=== PATIENT | female | born 1955 | race Caucasian/White ===

== ENCOUNTER 2018-04-08 04:26 | Inpatient (IN) | payer OTHER ==
--- NOTE | 2018-04-08 04:43 | PDOC ---
History of Present Illness - General Stated Complaint: L EAR PAIN Time Seen by Provider: 04/08/18 04:28 - History of Present Illness Initial Comments: 04/08/18 04:41 62 yo F with h/o COPD, KAITLIN, HTN , DM, who p/w cough, SOB, and left ear pain. Reports 1-2 months of worsening non productive cough, SOB. Denies duoneb use, but reports "ricolla cough suppressant use daily." Endorses 1 day of sharp left ear pain, absent discharge, with no identifiable triggers or alleviators. No home O2 requirements. Denies recent sick contacts or travels. Denies trauma, surgery, immobilization, malignancy. Patient denies N/V, F,C, CP, Palpitations, SOB, urinary complaints, abdominal pain, hematuria, BPR, diarrhea, constipation, lightheadedness, weakness, sensory changes. PMHx: as noted above. Denies h/o ICU admission or intubation. Does not f/w Pulm. ROS: as noted SHx: 1/2 ppd x 10+ years tobacco use. Denies IVDA Allergies: NKDA Past History - Past Medical History Allergies/Adverse Reactions: Allergies Allergy/AdvReac Type Severity Reaction Status Date / Time No Known Allergies Allergy Verified 04/08/18 04:45 Home Medications: Ambulatory Orders Duloxetine HCl [Cymbalta] 20 mg PO DAILY 04/08/18 Esomeprazole Magnesium [Nexium 24Hr] 40 mg PO DAILY 04/08/18 Ezetimibe [Zetia] 5 mg PO DAILY 04/08/18 Levothyroxine [Synthroid -] 75 mcg PO DAILY 04/08/18 Pilocarpine HCl 5 mg PO BID 04/08/18 Prednisone 5 mg PO DAILY 04/08/18 Quetiapine Fumarate "Xr" [Seroquel Xr -] 300 mg PO DAILY 04/08/18 Review of Systems - Review of Systems Comments:: 04/08/18 04:41 GENERAL/CONSTITUTIONAL: No fever or chills. No weakness. HEAD, EYES, EARS, NOSE AND THROAT: + Left ear pain, with absent drainage. No change in vision. No discharge. No sore throat. CARDIOVASCULAR: No chest pain RESPIRATORY: + SOB, cough. hemoptysis. GASTROINTESTINAL: No nausea, vomiting, diarrhea or constipation. GENITOURINARY: No dysuria, frequency, or change in urination. MUSCULOSKELETAL: No joint or muscle swelling or pain. No neck or back pain. SKIN: No rash NEUROLOGIC: No headache, vertigo, loss of consciousness, or change in strength/ sensation. ENDOCRINE: No increased thirst. No abnormal weight change HEMATOLOGIC/LYMPHATIC: No anemia, easy bleeding, or history of blood clots. ALLERGIC/IMMUNOLOGIC: No hives or skin allergy. *Physical Exam - Physical Exam Comments: 04/08/18 04:41 GENERAL: Awake, alert, and fully oriented, in no acute distress HEAD: No signs of trauma, normocephalic, atraumatic EYES: PERRLA, EOMI, sclera anicteric, conjunctiva clear ENT: Left TM slightly erythematous, with absent retraction, bulging, drainage/ discharge. Auricles normal inspection, hearing grossly normal, nares patent, oropharynx clear without exudates. Moist mucosa NECK: Normal ROM, supple, no lymphadenopathy, JVD, or masses LUNGS: + diffuse exp rhonci. No distress, speaks full sentences,absent rales. HEART: Regular rate and rhythm, normal S1 and S2, no murmurs, rubs or gallops, peripheral pulses normal and equal bilaterally. ABDOMEN: Soft, nontender, normoactive bowel sounds. No guarding, no rebound. No masses EXTREMITIES : Normal inspection, Normal range of motion, no edema. No clubbing or cyanosis. SKIN: Warm, Dry, normal turgor, no rashes or lesions noted ED Treatment Course - LABORATORY CBC & Chemistry Diagram: 04/08/18 05:32 04/08/18 05:32 Medical Decision Making - Medical Decision Making 04/08/18 05:05 62 yo F with h/o COPD, KAITLIN, HTN , DM, who p/w cough, SOB, and left ear otalgia. HR 119, vitals otherwise wnl. Patient diaphoretic, with diffuse exp rhonci. R/o PNA. Low risk PE Weils criteria. Will consider viral URI / COPD exacerbation. DDx: Influenza, pleural effusion. Ed Course: CBC, CMP, EKG, CXR, BCx, LA, VBG Duonebs, Prednisone, 04/08/18 05:30 EKG: Sinus tachycardia with RAD. Nml interval duration and axis. Nml R wave progression. Absent MARIA ELENA, STD. 04/08/18 05:42 Rectal temp 102 04/08/18 06:21 CBC: Unremarkable VBG: Unremarkable CXR: BL Lower lobe infiltrates Rocephin1 g , Azithromycin 500 mg 04/08/18 06:26 CMP: Unremarkable 04/08/18 06:30 LA: 1.6 FLU: Neg Patient with continued wheezing despite duonebs, and steroids. Plan to admit med/surg COPD, PNA, SEPSIS *DC/Admit/Observation/Transfer Diagnosis at time of Disposition: COPD (chronic obstructive pulmonary disease) Qualifiers: COPD type: COPD with acute exacerbation Qualified Code(s): J44.1 - Chronic obstructive pulmonary disease with (acute) exacerbation PNA (pneumonia) Qualifiers: Pneumonia type: due to unspecified organism Laterality: bilateral Lung location : unspecified part of lung Qualified Code(s): J18.9 - Pneumonia, unspecified organism - Discharge Dispostion Condition at time of disposition: Stable Decision to Admit order: Yes - Referrals - Patient Instructions Printed Discharge Instructions: DI for Ear Pain-Adult Additional Instructions: Please return to the emergency department with any new or worsening symptoms or concerns. Please follow up with your primary care physician within 72 hours. - Post Discharge Activity - Attestations Physician Attestion: 04/08/18 04:42 I attest to the information provided in this note.
[2018-04-08] MEDS ORDERED: ALBUTEROL SO4 2.5/IPRATROPIUM 0.5 INH SOL 3 ML VIAL.NEB. NEB ONE ×4 (04:56→05:45)
[2018-04-08] MEDS ORDERED: predniSONE 20 MG TABLET (UD) PO ONE (04:56)
[2018-04-08] MEDS ORDERED: guaiFENesin 200 MG/10 ML 10 ML UNIT-DOSE CUPS PO ONE (04:57)
[2018-04-08] MEDS ORDERED: ACETAMINOPHEN 325 MG TABLET (FP) PO ONE (05:18)
[2018-04-08] MEDS ORDERED: ACETAMINOPHEN 325 MG TABLET (FP) ONE (05:24)
[2018-04-08] MEDS ORDERED: guaiFENesin 200 MG/10 ML 10 ML UNIT-DOSE CUPS ONE (05:24)
[2018-04-08] MEDS ORDERED: predniSONE 20 MG TABLET (UD) ONE (05:24)
[2018-04-08 05:46] LABS: EOS % 1.1 % (0-4.5); HEMATOCRIT 39.1 % (32.4-45.2); HEMOGLOBIN 12.8 GM/dL (10.7-15.3); LYMPH % 25.8 % (8-40); MCHC 32.8 g/dl (32.0-36.0); MEAN CELL VOLUME 94.6 fl (80-96); MEAN PLT VOLUME 7.7 fl (7.5-11.1); MONO % 11.7 % (3.8-10.2); NEUT % 60.4 % (42.8-82.8); PLATELET COUNT 285 K/MM3 (134-434); RBC 4.13 M/mm3 (3.60-5.2); WHITE BLOOD COUNT 9.4 K/mm3 (4.0-10.0)
[2018-04-08] MEDS ORDERED: SODIUM CHLORIDE IV ONE (05:47)
[2018-04-08 06:06] LABS: VENOUS PC02 43.1 mmHg (38-52); VENOUS PH 7.42 (7.32-7.42); VENOUS PO2 33.5 mmHg (28-48)
[2018-04-08 06:23] LABS: ALBUMIN 3.6 g/dl (3.4-5.0); ALK PHOS 62 U/L (45-117); ANION GAP 9 MMOL/L (8-16); BILIRUBIN,TOTAL 0.6 mg/dL (0.2-1); BLOOD UREA NITROGEN 7 mg/dL (7-18); CALCIUM 8.9 mg/dL (8.5-10.1); CHLORIDE 99 mmol/L (98-107); CO2 26 mmol/L (21-32); CREATININE 0.8 mg/dL (0.55-1.3); GLUCOSE,RANDOM 156 mg/dL (74-106); POTASSIUM 4.4 mmol/L (3.5-5.1); SGOT/AST 23 U/L (15-37); SGPT/ALT 18 U/L (13-61); SODIUM 133 mmol/L (136-145); TOT PROT 7.8 g/dl (6.4-8.2)
[2018-04-08] MEDS ORDERED: AZITHROMYCIN IVPB 500 MG in DEXTROSE 5%-WATER - 250 ML IVPB ONE (06:26)
[2018-04-08] MEDS ORDERED: CEFTRIAXONE 1,000 MG in DEXTROSE 5%-WATER - 50 ML IVPB ONE ×2 (06:26→09:49)
[2018-04-08] MEDS ORDERED: AZITHROMYCIN IVPB 500 MG/250 ML BAG IVPB ONE (06:29)
[2018-04-08] MEDS ORDERED: CEFTRIAXONE 1 GM/50 ML BAG ONE (06:29)
--- NOTE | 2018-04-08 06:30 | PDOC ---
Attending Attestation - Resident Resident Name: Jh Coates - ED Attending Attestation I have performed the following: I have examined & evaluated the patient, The case was reviewed & discussed with the resident, I agree w/resident's findings & plan, Exceptions are as noted - HPI HPI: 04/08/18 06:28 62 years old past medical history significant for COPD obstructive sleep apnea hypertension diabetes presents with cough fever chills body aches worse over the last 3-4 days Symptoms are persistent concent moderate in severity with no alleviating factors she is also wheezing ROS: A complete review of 10 out of 10 review of systems is taken and is negative apart from what is previously mentioned below and in the HPI. - Physicial Exam PE: 04/08/18 06:29 Vitals: Triage Vital signs reviewed General Appearance: no acute distress, well nourished well developed, Head: Atraumatic, Eyes: Pupils equal reactive round, extraocular movement intact Neck: Supple;No Nucal rigidity Chest Wall: Nontender Cardiac: Regular rate and rhythym, no murmurs, no rubs, no gallops, Lungs: Clear to auscultation bilateral, good air movement bilaterally, Abdomen: Soft, non distended, normal bowel sounds, non tender to palpation Extremities: Full range of motion to all extremities, no cyanosis, clubbing, or edema Skin: Warm and dry, no rashes or lesions, no rash, no petechiae Psych: normal mood, normal affect - Medical Decision Making 04/08/18 06:29 Chest x-ray with evidence of lower lobe pneumonia Comorbidities still wheezing despite 3 DuoNeb's and steroids We'll admit to hospital for pneumonia complicated by COPD exacerbation for IV antibiotics IV steroids continue nebulizer treatment and further management. Heart Score/ECG Review - ECG Impressions Comment:: 04/08/18 06:30 EKG performed at 521 demonstrates sinus tachycardia [address] elevations or T-wave inversions right axis deviation Interpreted by me.
[2018-04-08] MEDS ORDERED: IBUPROFEN 600 MG TABLET (FP) PO ONE ×2 (07:17)
--- NOTE | 2018-04-08 07:19 | PDOC ---
*Physical Exam - Vital Signs Last Vital Signs Temp Pulse Resp BP Pulse Ox 101.7 F H 107 H 19 132/78 100 04/08/18 06:41 04/08/18 06:41 04/08/18 06:41 04/08/18 06:41 04/08/18 06:41 ED Treatment Course - LABORATORY CBC & Chemistry Diagram: 04/08/18 05:32 04/08/18 05:32 - ADDITIONAL ORDERS Additional order review: Laboratory Results 04/08/18 04/08/18 04/08/18 05:50 05:50 05:32 VBG pH 7.42 POC VBG pCO2 43.1 POC VBG pO2 33.5 Mixed VBG HCO3 27.5 H Sodium 133 L Potassium 4.4 Chloride 99 Carbon Dioxide 26 Anion Gap 9 BUN 7 Creatinine 0.8 Creat Clearance w eGFR > 60 Random Glucose 156 H Lactic Acid 1.6 Calcium 8.9 Total Bilirubin 0.6 AST 23 ALT 18 Alkaline Phosphatase 62 Total Protein 7.8 Albumin 3.6 04/08/18 05:32 RBC 4.13 MCV 94.6 MCHC 32.8 RDW 15.0 MPV 7.7 Neutrophils % 60.4 Lymphocytes % 25.8 Monocytes % 11.7 H Eosinophils % 1.1 Basophils % 1.0 - Medications Given in the ED: ED Medications Discontinued Medications Generic Name Dose Route Start Last Admin Trade Name Talib PRN Reason Stop Dose Admin Acetaminophen 650 mg 04/08/18 05:18 04/08/18 05:44 Tylenol - PO 04/08/18 05:19 650 mg ONCE ONE Administration Albuterol/Ipratropium 1 amp 04/08/18 04:56 04/08/18 05:44 Duoneb - NEB 04/08/18 04:57 1 amp ONCE ONE Administration Albuterol/Ipratropium 3 amp 04/08/18 05:30 04/08/18 05:44 Duoneb - NEB 04/08/18 05:31 3 amp ONCE ONE Administration Guaifenesin 10 ml 04/08/18 04:57 04/08/18 05:44 Robitussin - PO 04/08/18 04:58 10 ml ONCE ONE Administration Ceftriaxone Sodium 1,000 mg/ 50 mls @ 100 mls/hr 04/08/18 06:26 04/08/18 06: 40 Dextrose IVPB 04/08/18 06:55 100 mls/hr ONCE ONE Administration Prednisone 60 mg 04/08/18 04:56 04/08/18 05:44 Deltasone - PO 04/08/18 04:57 60 mg ONCE ONE Administration Medical Decision Making - Medical Decision Making 04/08/18 07:[address] Coates. Patient is 62F here today with copd and pneumonia. Patient reassessed, still febrile, given motrin. Patient has received duonebs, steroids, ceftriaxone, azithromycin. D/w Dr Molina. Admitted to m/s. *DC/Admit/Observation/Transfer Diagnosis at time of Disposition: COPD (chronic obstructive pulmonary disease) Qualifiers: COPD type: COPD with acute exacerbation Qualified Code(s): J44.1 - Chronic obstructive pulmonary disease with (acute) exacerbation PNA (pneumonia) Qualifiers: Pneumonia type: due to unspecified organism Laterality: bilateral Lung location : unspecified part of lung Qualified Code(s): J18.9 - Pneumonia, unspecified organism - Discharge Dispostion Condition at time of disposition: Stable Decision to Admit order: Yes - Referrals - Patient Instructions Printed Discharge Instructions: DI for Ear Pain-Adult Additional Instructions: Please return to the emergency department with any new or worsening symptoms or concerns. Please follow up with your primary care physician within 72 hours. - Post Discharge Activity
--- NOTE | 2018-04-08 08:02 | HP ---
CHIEF COMPLAINT: Cough and fever x 3 days PCP: JOSE A [facility]- Kely Coates/ Eben Pleitez-[phone] Likely PCP- Malcolm [phone] HISTORY OF PRESENT ILLNESS: Pt is a 62 yo F with PMHx of DM, HTN, KAITLIN (not currently on CPAP), thyroid disease, diverticulitis, disc prolapse, immune hepatitis, current smoker, presenting with worsening non productive cough and fever x3 days. Pt has chronic cough that worsened over the past 3 days with associated fevers. There is associated nasal congestion, L ear pain and sore throat. Pt uses hearing aids bilaterally, no ear discharge. No nausea/vomiting. Has been in contact with daughter and granddaughter with similar symptoms. Pt received flu vaccine about 4 months ago, does not know about pneumococal vaccine. Reports negative TB test about 4 years ago. Pt always uses 3 pillows. Was diagnosed with sleep apnea in past and had used CPAP for a while until it was "taken back" about 2 years ago. No pedal edema, no early satiety. Pt is a current smoker attempted quitting in past. Used nicotine gum and bupropion in past. Is open to using nicotine patch. Pt is visiting from [place] where she lives with a daughter and follows for health care. Has been shuttling between [facility] and [place] for the past one year between 2 daughters. Colonoscopy - reports nl 5years ago. ER course was notable for: (1)Fever 102.1>>101.7, tachycardia (2) CXR- possible bilateral infiltrates lower lobes, read as congestive changes , BNP-54 (3) EKG-sinus tachy, QTC wnl, No MARIA ELENA/STD. nl axis (4) zithromycin and ceftriaxone, fluids, duonebs Recent Travel: PAST MEDICAL HISTORY: PMHx of DM, HTN, KAITLIN (not currently on CPAP), thyroid disease, diverticulitis, disc prolapse, immune hepatitis PAST SURGICAL HISTORY: B/l cataract sx R ankle sx following fracture B/l claw hand sx R shoulder sx Social History: Smokin-8 cigs/day for almost 40 years Alcohol:Social Drugs: Denies Family History: Allergies No Known Allergies Allergy (Verified 04/08/18 04:45) HOME MEDICATIONS: Home Medications Medication Instructions Recorded Duloxetine HCl [Cymbalta] 20 mg PO DAILY 04/08/18 Esomeprazole Magnesium [Nexium 40 mg PO DAILY 04/08/18 24Hr] Ezetimibe [Zetia] 5 mg PO DAILY 04/08/18 Levothyroxine [Synthroid -] 75 mcg PO DAILY 04/08/18 Pilocarpine HCl 5 mg PO BID 04/08/18 Prednisone 5 mg PO DAILY 04/08/18 Quetiapine Fumarate "Xr" [Seroquel 300 mg PO DAILY 04/08/18 Xr -] REVIEW OF SYSTEMS CONSTITUTIONAL: Absent: fever+, chills+, diaphoresis+, generalized weakness, malaise, loss of appetite, weight change HEENT: Absent: rhinorrhea, nasal congestion+, throat pain+, throat swelling, difficulty swallowing, mouth swelling, ear pain, eye pain, visual changes CARDIOVASCULAR: Absent: chest pain, syncope, palpitations, irregular heart rate, lightheadedness , peripheral edema RESPIRATORY: Absent: cough+, shortness of breath+, dyspnea with exertion, orthopnea, wheezing , stridor, hemoptysis GASTROINTESTINAL: Absent: abdominal pain, abdominal distension, nausea, vomiting, diarrhea, constipation, melena, hematochezia GENITOURINARY: Absent: dysuria, frequency, urgency, hesitancy, hematuria+, L flank pain+, genital pain MUSCULOSKELETAL: Absent: myalgia, arthralgia, joint swelling, back pain, neck pain SKIN: Absent: rash, itching, pallor HEMATOLOGIC/IMMUNOLOGIC: Absent: easy bleeding, easy bruising, lymphadenopathy, frequent infections ENDOCRINE: Absent: unexplained weight gain, unexplained weight loss, heat intolerance, cold intolerance NEUROLOGIC: Absent: headache, focal weakness or paresthesias, dizziness, unsteady gait, seizure, mental status changes, bladder or bowel incontinence PSYCHIATRIC: Absent: anxiety, depression, suicidal or homicidal ideation, hallucinations. PHYSICAL EXAMINATION Vital Signs - 24 hr 04/08/18 04/08/18 04/08/18 04:29 05:42 06:41 Temperature 99.0 F 102.9 F H 101.7 F H Pulse Rate 119 H Pulse Rate [ 107 H Right Radial] Respiratory 18 19 Rate Blood Pressure 127/84 Blood Pressure 132/78 [Left Arm] O2 Sat by Pulse 100 100 Oximetry (%) GENERAL: Awake, alert, and fully oriented, in no acute distress, sweating. HEAD: Normal with no signs of trauma. EYES: intraocular lens b/l , extraocular movements intact, sclera anicteric, conjunctiva clear. EARS, NOSE, THROAT: tender L Ear, nares patent, oropharynx clear without exudates. Moist mucous membranes. NECK: Normal range of motion, supple without lymphadenopathy, JVD, or masses. LUNGS: Few wheezes, prolonged expiratory phase, and left basal crackles. HEART: tachycardic, rate and rhythm, normal S1 and S2 . ABDOMEN: Soft, mild epigastric tenderness, mildly distended, normoactive bowel sounds, no guarding, no rebound, no masses. MUSCULOSKELETAL: Normal range of motion at all joints. No bony deformities or tenderness. L mild CVA tenderness. LOWER EXTREMITIES: 2+ pulses, warm, well-perfused. No calf tenderness. No peripheral edema. NEUROLOGICAL: Cranial nerves II-XII intact. Normal speech. Normal muscle strength globally, no facial asymmetry, no tongue deviation PSYCHIATRIC: Cooperative. Good eye contact. Appropriate mood and affect. Laboratory Results - last 24 hr 04/08/18 04/08/18 04/08/18 05:32 05:32 05:50 WBC 9.4 RBC 4.13 Hgb 12.8 Hct 39.1 MCV 94.6 MCH 31.0 MCHC 32.8 RDW 15.0 Plt Count 285 MPV 7.7 Absolute Neuts (auto) 5.7 Neutrophils % 60.4 Lymphocytes % 25.8 Monocytes % 11.7 H Eosinophils % 1.1 Basophils % 1.0 Nucleated RBC % 0 VBG pH POC VBG pCO2 POC VBG pO2 Mixed VBG HCO3 Sodium 133 L Potassium 4.4 Chloride 99 Carbon Dioxide 26 Anion Gap 9 BUN 7 Creatinine 0.8 Creat Clearance w eGFR > 60 Random Glucose 156 H Lactic Acid Calcium 8.9 Total Bilirubin 0.6 AST 23 ALT 18 Alkaline Phosphatase 62 Total Protein 7.8 Albumin 3.6 Influenza A (Rapid) Negative Influenza B (Rapid) Negative 04/08/18 04/08/18 05:50 05:50 WBC RBC Hgb Hct MCV MCH MCHC RDW Plt Count MPV Absolute Neuts (auto) Neutrophils % Lymphocytes % Monocytes % Eosinophils % Basophils % Nucleated RBC % VBG pH 7.42 POC VBG pCO2 43.1 POC VBG pO2 33.5 Mixed VBG HCO3 27.5 H Sodium Potassium Chloride Carbon Dioxide Anion Gap BUN Creatinine Creat Clearance w eGFR Random Glucose Lactic Acid 1.6 Calcium Total Bilirubin AST ALT Alkaline Phosphatase Total Protein Albumin Influenza A (Rapid) Influenza B (Rapid) Urine Test Results Urine Color Straw 04/08/18 08:11 Urine Appearance Clear 04/08/18 08:11 Urine pH 6.0 (5.0-8.0) 04/08/18 08:11 Ur Specific [place] 1.005 (1.010-1.035) L 04/08/18 08:11 Urine Protein Negative (NEGATIVE) 04/08/18 08:11 Urine Glucose (UA) Negative (NEGATIVE) 04/08/18 08:11 Urine Ketones Negative (NEGATIVE) 04/08/18 08:11 Urine Blood 1+ (NEGATIVE) H 04/08/18 08:11 Urine Nitrite Negative (NEGATIVE) 04/08/18 08:11 Urine Bilirubin Negative (<2.0 mg/dL) 04/08/18 08:11 Ur Leukocyte Esterase Negative (NEGATIVE) 04/08/18 08:11 Active Medications Acetaminophen (Tylenol -) 650 mg PO Q6H PRN PRN Reason: FEVER Albuterol/Ipratropium (Duoneb -) 1 amp NEB Q4H PRN PRN Reason: SHORTNESS OF BREATH Guaifenesin/Codeine Phosphate (Robitussin Ac -) 5 ml PO TID PRN PRN Reason: COUGH Heparin Sodium (Porcine) (Heparin -) 5,000 unit SQ TID CATHLEEN Last Admin: 04/08/18 14:42 Dose: 5,000 unit Ceftriaxone Sodium 1 gm/ (Dextrose) 50 mls @ 100 mls/hr IVPB ONCE ONE Stop: 04/09/18 10:18 Azithromycin (Zithromax 500mg Ivpb (Pre-Docked)) 500 mg in 250 mls @ 250 mls/ hr IVPB DAILY CATHLEEN Sodium Chloride (Normal Saline -) 1,000 mls @ 75 mls/hr IV ASDIR CATHLEEN Last Admin: 04/08/18 11:19 Dose: 75 mls/hr Insulin Aspart (Novolog Vial Sliding Scale -) 1 vial SQ ACHS CATHLEEN; Protocol Last Admin: 04/08/18 12:15 Dose: 8 units Methylprednisolone Sodium Succinate (Solu-Medrol -) 40 mg IVPUSH Q8H-IV CATHLEEN Last Admin: 04/08/18 14:40 Dose: 40 mg Neomycin/Polymyxin/Hydrocortisone (Cortisporin Otic Solution -) 4 drop Q6HPO [facility] Last Admin: 04/08/18 14:40 Dose: 4 drop Nicotine (Nicoderm Patch -) 7 mg TD DAILY [facility] Last Admin: 04/08/18 14:43 Dose: 7 mg ASSESSMENT/PLAN: Pt is a 62 yo F with PMHx of DM, HTN, KAITLIN (not currently on CPAP), COPD, thyroid disease, diverticulitis, disc prolapse, immune hepatitis, current smoker , presenting with worsening non productive cough and fever x3 days. # Sepsis likely secondary to PNA R/O otitis media Pt with hx of hearing aid use Cont ceftriaxone , azithromycin Legionella Urinary ag Flu swab negative Strep clture pending Bcx pending UA- negative CXR- not conclusive Pulm consult NS @75 Cortisporine otic solution PO Robitussin Ac 5ml -tid Acute hypoxic respiratory failure Could be secondary to PNA vs COPD abg-not retaining CO2 Supplemental O2 as needed to keep sats >90% Pulm Consult Cont nebs Solumed CXR- read as congestion BNP-54.4, pt does not appear hypervolemic Monitor off diuresis, gentle hydration in back grond sepsis DM ISS ACHS BGM ACHS HTN, Controlled for now, Pending med rec Pt being hydrated KAITLIN (not currently on CPAP), Monitor Supplemental O2 as needed to keep sats >90% Will benefit from outpt follow up COPD Pt is unaware of COPD diagnosis Chronic and current smoker, denies asthma but is atopic Duonebs Solumed 40Q8 Will benefit from outpt PFTs Pulm consult thyroid disease, Med rec - unable to confirm thyroid medications from [facility] in [place]-[phone] Medication put in by likely ED nurse, please confirm (will put a dose of synthroid for today) diverticulitis, Hx - Last BM 2 days ago disc prolapse, Monitor immune hepatitis, Follows out pt 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 - New Patient This patient is new to me today: Yes Date on this admission: 04/08/18 - Critical Care Critical Care patient: No
[2018-04-08 08:43] LABS: URINE APPEARANCE CLEAR; URINE BILIRUBIN NEGATIVE (<2.0 mg/dL); URINE COLOR STRAW; URINE GLUCOSE (UA) NEGATIVE (NEGATIVE); URINE KETONE NEGATIVE (NEGATIVE); URINE LEUK ESTERASE NEGATIVE (NEGATIVE); URINE NITRITE NEGATIVE (NEGATIVE); URINE PROTEIN NEGATIVE (NEGATIVE); URINE UROBILINOGEN NEGATIVE mg/dL (0.2-1.0)
--- NOTE | 2018-04-08 08:45 | PN ---
Teaching Attending Note Name of Resident: Suzanne Molina ATTENDING PHYSICIAN STATEMENT I saw and evaluated the patient. I reviewed the resident's note and discussed the case with the resident. I agree with the resident's findings and plan as documented. SUBJECTIVE: This patient is a 62 yo F with PMHx of DM, HTN, KAITLIN (not currently on CPAP), thyroid disease, diverticulitis, disc prolapse, immune hepatitis, current smoker , presenting with worsening non productive cough and fever x3 days. Patient is a smoker. OBJECTIVE: Vital Signs Temperature 101.0 F H 04/08/18 08:28 Pulse Rate 107 H 04/08/18 06:41 Respiratory Rate 04/08/18 06:41 Blood Pressure 132/78 04/08/18 06:41 O2 Sat by Pulse Oximetry (%) 100 04/08/18 06:41 Initial Vital Signs Temp Pulse Resp BP Pulse Ox 99.0 F 119 H 18 127/84 100 04/08/18 04:29 04/08/18 04:29 04/08/18 04:29 04/08/18 04:29 04/08/18 04:29 Vital Signs Temperature 98.6 F 04/08/18 18:00 Pulse Rate 85 04/08/18 18:00 Respiratory Rate 18 04/08/18 18:00 Blood Pressure 120/78 04/08/18 18:00 O2 Sat by Pulse Oximetry (%) 94 L 04/08/18 11:45 GENERAL: Awake, alert, and fully oriented, NAD, nice female HEAD: Normal with no signs of trauma. EYES: intraocular lens b/l , extraocular movements intact, sclera anicteric, conjunctiva clear. EARS, NOSE, THROAT: tender Left Ear, waers bl hearing aids, but can hear ok without hearing aids. oropharynx clear without exudates.MMM. NECK: Normal range of motion, supple without lymphadenopathy, JVD, or masses. LUNGS: Few wheezes, prolonged expiratory phase, and left basal crackles. HEART: tachycardic, rate and rhythm, normal S1 and S2 . ABDOMEN: Soft, mild epigastric tenderness, mildly distended, normoactive bowel sounds, no guarding, no rebound, no masses. EXTREMITIES: 2+ pulses, warm, well-perfused. No calf tenderness. No peripheral edema. NEUROLOGICAL: Cranial nerves II-XII intact. Normal speech. PSYCHIATRIC: Cooperative. Good eye contact. Appropriate mood and affect. CBCD WBC 9.4 K/mm3 (4.0-10.0) 04/08/18 05:32 RBC 4.13 M/mm3 (3.60-5.2) 04/08/18 05:32 Hgb 12.8 GM/dL (10.7-15.3) 04/08/18 05:32 Hct 39.1 % (32.4-45.2) 04/08/18 05:32 MCV 94.6 fl (80-96) 04/08/18 05:32 MCHC 32.8 g/dl (32.0-36.0) 04/08/18 05:32 RDW 15.0 % (11.6-15.6) 04/08/18 05:32 Plt Count 285 K/MM3 (134-434) 04/08/18 05:32 MPV 7.7 fl (7.5-11.1) 04/08/18 05:32 CMP Sodium 133 mmol/L (136-145) L 04/08/18 05:32 Potassium 4.4 mmol/L (3.5-5.1) 04/08/18 05:32 Chloride 99 mmol/L (98-107) 04/08/18 05:32 Carbon Dioxide 26 mmol/L (21-32) 04/08/18 05:32 Anion Gap 9 MMOL/L (8-16) 04/08/18 05:32 BUN 7 mg/dL (7-18) 04/08/18 05:32 Creatinine 0.8 mg/dL (0.55-1.3) 04/08/18 05:32 Creat Clearance w eGFR > 60 (>60) 04/08/18 05:32 Random Glucose 156 mg/dL (74-106) H 04/08/18 05:32 Calcium 8.9 mg/dL (8.5-10.1) 04/08/18 05:32 Total Bilirubin 0.6 mg/dL (0.2-1) 04/08/18 05:32 AST 23 U/L (15-37) 04/08/18 05:32 ALT 18 U/L (13-61) 04/08/18 05:32 Alkaline Phosphatase 62 U/L (45-117) 04/08/18 05:32 Total Protein 7.8 g/dl (6.4-8.2) 04/08/18 05:32 Albumin 3.6 g/dl (3.4-5.0) 04/08/18 05:32 Current Medications Generic Name Dose Route Start Last Admin Trade Name Talib PRN Reason Stop Dose Admin Heparin Sodium (Porcine) 5,000 unit 04/08/18 14:00 Heparin - SQ TID [facility], [facility]–1983 Home Medications Medication Instructions Recorded Duloxetine HCl [Cymbalta] 20 mg PO DAILY 04/08/18 Esomeprazole Magnesium [Nexium 40 mg PO DAILY 04/08/18 24Hr] Ezetimibe [Zetia] 5 mg PO DAILY 04/08/18 Levothyroxine [Synthroid -] 75 mcg PO DAILY 04/08/18 Pilocarpine HCl 5 mg PO BID 04/08/18 Prednisone 5 mg PO DAILY 04/08/18 Quetiapine Fumarate "Xr" [Seroquel 300 mg PO DAILY 04/08/18 Xr -] ASSESSMENT AND PLAN: Pt is a 62 yo F with PMHx of DM, HTN, KAITLIN (not currently on CPAP), COPD, thyroid disease, diverticulitis, disc prolapse, immune hepatitis, current smoker , presented with fever of 101.5 , non productive cough x3 days. # Sepsis due to PNA on IV antibiotics rocephin/zithromax. duonebernardino, pulmonary consult, follow pneu/legionell urine antigen # Acute Otitis media patient wears hearing aids, on polytrim otic #Acute hypoxic respiratory failure with COPD exacerbation newly diagnosed, on Duonebs, and pulm consult, solumedrol IV, PFT as an outpatient. #T2DM ssliging scale with coverage # HTN, monitor, check home meds #KAITLIN (not currently on CPAP), keep on o2 Nc ,keep sats >90% #thyroid disease: med rec - unable to confirm thyroid medications from [facility] [phone] # Smoking dependency recommended to stop smoking DVT: heparin sq 5000 tid
[2018-04-08] MEDS ORDERED: AZITHROMYCIN IVPB 500 MG/250 ML BAG IVPB SCH (10:00)
[2018-04-08 10:35] LABS: N-TERMINAL BNP 54.4 pg/ml (5-125)
[2018-04-08 10:38] LABS: INR 1.12 (0.83-1.09); PROTHROMBIN TIME (PATIENT) 13.2 SEC (9.7-13.0)
[2018-04-08 10:50] LABS: ARTERIAL BLD GAS O2 SATURATION 88.8 % (90-98.9); ARTERIAL BLOOD GAS BASE EXCESS 0.7 meq/l (-2-2); ARTERIAL BLOOD GAS PCO2 39.9 mmHg (35-45); ARTERIAL BLOOD GAS PO2 58.7 mmHg (80-100); ARTERIAL BLOOD GAS pH 7.41 (7.35-7.45)
[2018-04-08] MEDS: SODIUM CHLORIDE 1,000 ML IV SCH (11:19)
[2018-04-08 12:00] VITALS: BMI 35.1
[2018-04-08] MEDS ORDERED: INSULIN (NOVOLOG) ASPART 100 UNITS/ML 10ML VIAL ONE (12:10)
[2018-04-08] MEDS: INSULIN SLIDING SCALE (NOVOLOG) 1 VIAL SQ SCH ×3 (12:15→21:22)
[2018-04-08] MEDS ORDERED: guaiFENesin/CODEINE 5 ML UNIT-DOSE CUPS PO PRN (12:17)
[2018-04-08] MEDS ORDERED: PT OWN MED DRAWER 7, Y5N ONE ×2 (14:39→17:58)
[2018-04-08] MEDS: NEOMYCIN/POLYMYXN/HC OTIC SOLUTION 10 ML BOTTLE AS SCH ×2 (14:40→18:07)
[2018-04-08] MEDS: methylPREDNISolone NA SUCC 40 MG/1 ML VIAL IVPUSH SCH ×2 (14:40→18:07)
[2018-04-08] MEDS: HEPARIN NA (PORCINE) 5,000 UNITS/ML 1ML VIAL SQ SCH ×2 (14:42→21:28)
[2018-04-08] MEDS: NICOTINE 7 MG/24 HOURS TOPICAL PATCH TD SCH (14:43)
[2018-04-08 15:42] LABS: COCAINE, UR NEGATIVE ng/ml (CUTOFF=300); METHADONE, UR NEGATIVE ng/ml (CUTOFF=300); OPIATES, URI NEGATIVE ng/ml (CUTOFF=300); PHENCYCLIDINE,URINE NEGATIVE ng/ml (CUTOFF=25); URINE AMPHETAMINES NEGATIVE ng/ml (CUTOFF=500); URINE BARBITURATES NEGATIVE ng/ml (CUTOFF=200); URINE BENZODIAZEPINES NEGATIVE ng/ml (CUTOFF=200)
[2018-04-08] MEDS ORDERED: LEVOTHYROXINE NA 75 MCG TABLET (FP) PO ONE (16:15)
[2018-04-08] MEDS: guaiFENesin/CODEINE 5 ML UNIT-DOSE CUPS PO PRN (16:37)
[2018-04-08] MEDS: ALBUTEROL SO4 2.5/IPRATROPIUM 0.5 INH SOL 3 ML VIAL.NEB. NEB PRN (20:45)
[2018-04-09] MEDS ORDERED: PT OWN MED DRAWER 7, Y5N ONE ×6 (00:40→19:14)
[2018-04-09] MEDS: NEOMYCIN/POLYMYXN/HC OTIC SOLUTION 10 ML BOTTLE AS SCH ×6 (00:44→23:15)
[2018-04-09] MEDS: methylPREDNISolone NA SUCC 40 MG/1 ML VIAL IVPUSH SCH ×3 (01:52→17:38)
[2018-04-09] MEDS: SODIUM CHLORIDE 1,000 ML IV SCH ×2 (01:52→21:39)
[2018-04-09] MEDS: guaiFENesin/CODEINE 5 ML UNIT-DOSE CUPS PO PRN ×2 (03:50→12:21)
[2018-04-09] MEDS: ALBUTEROL SO4 2.5/IPRATROPIUM 0.5 INH SOL 3 ML VIAL.NEB. NEB PRN (04:05)
[2018-04-09] MEDS: HEPARIN NA (PORCINE) 5,000 UNITS/ML 1ML VIAL SQ SCH ×3 (05:55→21:41)
[2018-04-09] MEDS: ACETAMINOPHEN 325 MG TABLET (FP) PO PRN (06:02)
[2018-04-09] MEDS: INSULIN SLIDING SCALE (NOVOLOG) 1 VIAL SQ SCH ×4 (06:04→21:44)
[2018-04-09 06:18] LABS: BASO % 0.7 % (0-2.0); HEMOGLOBIN 12.4 GM/dL (10.7-15.3); LYMPH % 8.5 % (8-40); MCHC 32.5 g/dl (32.0-36.0); MEAN CELL VOLUME 95.5 fl (80-96); MONO % 6.5 % (3.8-10.2); NEUT % 84.3 % (42.8-82.8); PLATELET COUNT 298 K/MM3 (134-434); RBC 3.99 M/mm3 (3.60-5.2); RDW 15.1 % (11.6-15.6)
[2018-04-09 06:54] LABS: ALBUMIN 3.3 g/dl (3.4-5.0); ALK PHOS 58 U/L (45-117); ANION GAP 7 MMOL/L (8-16); BILIRUBIN,TOTAL 0.4 mg/dL (0.2-1); BLOOD UREA NITROGEN 11 mg/dL (7-18); CALCIUM 8.9 mg/dL (8.5-10.1); CHLORIDE 104 mmol/L (98-107); CO2 24 mmol/L (21-32); CREATININE 0.7 mg/dL (0.55-1.3); GLUCOSE,RANDOM 293 mg/dL (74-106); MAGNESIUM 1.8 mg/dL (1.8-2.4); PHOSPHOROUS 1.8 mg/dL (2.5-4.9); POTASSIUM 4.4 mmol/L (3.5-5.1); SGOT/AST 14 U/L (15-37); SGPT/ALT 16 U/L (13-61); SODIUM 135 mmol/L (136-145); TOT PROT 7.4 g/dl (6.4-8.2)
[2018-04-09] MEDS ORDERED: cefTRIAXone SODIUM 1 GM VIAL ONE ×2 (09:46→16:37)
[2018-04-09] MEDS ORDERED: DEXTROSE 5%-WATER - 50 ML IVPB ONE ×2 (09:46→16:37)
[2018-04-09] MEDS ORDERED: CEFTRIAXONE 1 GM in DEXTROSE 5%-WATER - 50 ML IVPB ONE (09:49)
[2018-04-09] MEDS: NICOTINE 7 MG/24 HOURS TOPICAL PATCH TD SCH ×2 (09:58→22:24)
[2018-04-09] MEDS: AZITHROMYCIN IVPB 500 MG/250 ML BAG IVPB SCH (10:43)
[2018-04-09] MEDS ORDERED: ALBUTEROL SO4 0.083% IH SOL 2.5 MG/3 ML VIAL.NEB. NEB PRN (10:46)
--- NOTE | 2018-04-09 10:46 | CON.PULM ---
Consult Consult Specialty:: PULMONARY Referred by:: Dr. Medrano Reason for Consultation:: shortness of breath - History of Present Illness Chief Complaint: shortness of breath History of Present Illness: 62yo female with h/o HTN, DM, hypothyroidism, KAITLIN, smoker who was admitted with worsening shortness of breath x 3 days. She states she has been feeling more short of breath over the past 2 months. No chest pain or discomfort. + subjective fevers and chills. +cough productive of thick yellow sputum as well as wheezing. She denies any history of asthma or COPD but is a long time smoker , now about 7 cigarettes/day. She also reports sick contacts with daughter and grandchildren. - History Source History Provided By: Patient, Medical Record Limitations to Obtaining History: Language Barrier - Past Medical History Cardio/Vascular: Yes: HTN Pulmonary: Yes: Sleep Apnea Endocrine: Yes: Diabetes Mellitus - Alcohol/Substance Use Hx Alcohol Use: No - Smoking History Smoking history: Current every day smoker Aproximately how many cigarettes per day: 8 Home Medications - Allergies Allergies/Adverse Reactions: Allergies Allergy/AdvReac Type Severity Reaction Status Date / Time No Known Allergies Allergy Verified 04/08/18 04:45 - Home Medications Home Medications: Ambulatory Orders Cyclobenzaprine HCl 5 mg PO HS 04/08/18 Duloxetine HCl [Cymbalta] 120 mg PO HS 04/08/18 Esomeprazole Magnesium [Nexium 24Hr] 40 mg PO DAILY 04/08/18 Ezetimibe [Zetia] 5 mg PO DAILY 04/08/18 Fexofenadine HCl [Nazia Allergy] 30 mg PO DAILY 04/08/18 Gemfibrozil 600 mg PO DAILY 04/08/18 Insulin Glargine,Hum.rec.anlog [Lantus Solostar PEN (NF)] 25 units SQ HS Insulin Glargine,Hum.rec.anlog [Lantus Solostar PEN (NF)] 40 units SQ AM Insulin Lispro [Humalog Kwikpen] 10 unit SQ AM 04/08/18 Levothyroxine [Synthroid -] 75 mcg PO DAILY 04/08/18 Metoprolol Tartrate 12.5 mg PO BID 04/08/18 Pilocarpine HCl 5 mg PO TID 04/08/18 Prednisone 5 mg PO DAILY 04/08/18 Pregabalin [Lyrica] 50 mg PO BID 04/08/18 Quetiapine Fumarate "Xr" [Seroquel Xr -] 300 mg PO HS 04/08/18 Quetiapine Fumarate [Seroquel -] 50 mg PO BID 04/08/18 Timolol 0.5% [Timoptic 0.5%] 1 drop OU DAILY 04/08/18 metFORMIN HCL [Metformin HCl] 1,000 mg PO AM 04/08/18 metFORMIN HCL [Metformin HCl] 500 mg PO HS 04/08/18 traZODone HCL [Trazodone HCl] 100 mg PO HS 04/08/18 Review of Systems - Review of Systems Constitutional: reports: Chills, Fever, Weakness Eyes: denies: Recent Change in Vision HENT: reports: Nasal Congestion, Throat Pain Neck: denies: Stiffness, Tenderness Cardiovascular: reports: Shortness of Breath. denies: Chest Pain, Edema, Palpitations Respiratory: reports: Cough, Exercise Intolerance, SOB on Exertion, Wheezing. denies: Hemoptysis Gastrointestinal: denies: Abdominal Pain, Nausea, Vomiting Genitourinary: denies: Dysuria, Hematuria Neurological: denies: Dizziness, Headache Endocrine: denies: Unexplained Weight Loss Physical Exam Vital Sings: Vital Signs Temperature 98.1 F 04/09/18 06:00 Pulse Rate 73 04/09/18 06:00 Respiratory Rate 20 04/09/18 06:00 Blood Pressure 134/88 04/09/18 06:00 O2 Sat by Pulse Oximetry (%) 100 04/08/18 21:00 Constitutional: Yes: Anxious Eyes: Yes: Conjunctiva Clear, EOM Intact HENT: Yes: Atraumatic, Normocephalic Neck: Yes: Supple, Trachea Midline Cardiovascular: Yes: Regular Rate and Rhythm Respiratory: Yes: Rhonchi, Wheezes ...Clubbing: No Gastrointestinal: Yes: Normal Bowel Sounds, Soft. No: Tenderness Edema: No Neurological: Yes: Alert, Oriented Labs: CBC, BMP 04/09/18 05:30 04/09/18 05:30 ABG Results ABG pH 7.41 (7.35-7.45) 04/08/18 10:40 ABG pCO2 at Pt Temp 39.9 mmHg (35-45) 04/08/18 10:40 ABG pO2 at Pt Temp 58.7 mmHg (80-100) L 04/08/18 10:40 ABG HCO3 24.8 meq/L (22-26) 04/08/18 10:40 ABG O2 Sat (Measured) 88.8 % (90-98.9) L 04/08/18 10:40 ABG O2 Content 13.9 % vol (15-22) L 04/08/18 10:40 ABG Base Excess 0.7 meq/l (-2-2) 04/08/18 10:40 Imaging - Results Chest X-ray: Report Reviewed, Image Reviewed (bibasilar infiltrates) Problem List - Problems (1) PNA (pneumonia) Code(s): J18.9 - PNEUMONIA, UNSPECIFIED ORGANISM Qualifiers: Pneumonia type: due to unspecified organism Laterality: bilateral Lung location: unspecified part of lung Qualified Code(s): J18.9 - Pneumonia, unspecified organism (2) COPD with acute exacerbation Code(s): J44.1 - CHRONIC OBSTRUCTIVE PULMONARY DISEASE W (ACUTE) EXACERBATION (3) HTN (hypertension) Code(s): I10 - ESSENTIAL (PRIMARY) HYPERTENSION (4) Diabetes Code(s): E11.9 - TYPE 2 DIABETES MELLITUS WITHOUT COMPLICATIONS (5) Hypothyroidism Code(s): E03.9 - HYPOTHYROIDISM, UNSPECIFIED Assessment/Plan Pneumonia Acute COPD Exacerbation HTN DM Hypothyroidism KAITLIN Smoker - agree with antibiotics - ceftriaxone/azithromycin - f/u cultures - short course of medrol - inhaled bronchodilators standing and PRN - O2 to keep SpO2 >90% - smoking cessation - outpt PFTs and f/u - DVT prophylaxis Thank you for this consult Dajuan Coronado MD
[2018-04-09] MEDS: ALBUTEROL SO4 2.5/IPRATROPIUM 0.5 INH SOL 3 ML VIAL.NEB. NEB SCH ×3 (13:00→20:29)
--- NOTE | 2018-04-09 14:05 | PN ---
Physical Exam: SUBJECTIVE: Patient seen and examined this AM. She states that she feels better today but is still having some SOB and her cough is persisting. OBJECTIVE: Vital Signs Period Temp Pulse Resp BP Sys/De Santiago Pulse Ox Last 24 Hr 97.6 F-98.6 F 71-92 18-104 104-134/58-88 98-100 GENERAL: A&O, no acute distress HEAD: Normocephalic, atraumatic. EYES: PERRL, no scleral icterus EARS, NOSE, THROAT: oropharynx clear without exudates. Moist mucous membranes. NECK: supple without lymphadenopathy LUNGS: Diffuse wheezes HEART: Regular rate and rhythm, normal S1 and S2 without murmur ABDOMEN: Soft, nontender to palpation, normoactive bowel sounds MUSCULOSKELETAL: No bony deformities or tenderness. EXTREMITIES: 2+ pulses, warm, well-perfused. No peripheral edema. NEUROLOGICAL: Cranial nerves II-XII grossly intact. Normal speech. PSYCHIATRIC: Cooperative. Good eye contact. Appropriate mood and affect. SKIN: Warm, dry, no rashes or lesions noted Laboratory Results - last 24 hr 04/08/18 04/08/18 04/08/18 14:00 16:40 21:16 WBC RBC Hgb Hct MCV MCH MCHC RDW Plt Count MPV Absolute Neuts (auto) Neutrophils % Lymphocytes % Monocytes % Eosinophils % Basophils % Nucleated RBC % Sodium Potassium Chloride Carbon Dioxide Anion Gap BUN Creatinine Creat Clearance w eGFR POC Glucometer 305 345 Random Glucose Hemoglobin A1c % Calcium Phosphorus Magnesium Total Bilirubin AST ALT Alkaline Phosphatase B-Natriuretic Peptide Total Protein Albumin Opiates Screen Negative Methadone Screen Negative Barbiturate Screen Negative Phencyclidine Screen Negative Ur Amphetamines Screen Negative MDMA (Ecstasy) Screen Negative Benzodiazepines Screen Negative Cocaine Screen Negative U Marijuana (THC) Screen Negative 04/09/18 04/09/18 04/09/18 05:30 05:30 05:30 WBC 9.0 RBC 3.99 Hgb 12.4 Hct 38.0 MCV 95.5 MCH 31.0 MCHC 32.5 RDW 15.1 Plt Count 298 MPV 8.0 Absolute Neuts (auto) 7.6 Neutrophils % 84.3 H D Lymphocytes % 8.5 D Monocytes % 6.5 Eosinophils % 0.0 D Basophils % 0.7 Nucleated RBC % 0 Sodium 135 L Potassium 4.4 Chloride 104 Carbon Dioxide 24 Anion Gap 7 L BUN 11 Creatinine 0.7 Creat Clearance w eGFR > 60 POC Glucometer Random Glucose 293 H Hemoglobin A1c % 8.1 H Calcium 8.9 Phosphorus 1.8 L Magnesium 1.8 Total Bilirubin 0.4 AST 14 L ALT 16 Alkaline Phosphatase 58 B-Natriuretic Peptide Total Protein 7.4 Albumin 3.3 L Opiates Screen Methadone Screen Barbiturate Screen Phencyclidine Screen Ur Amphetamines Screen MDMA (Ecstasy) Screen Benzodiazepines Screen Cocaine Screen U Marijuana (THC) Screen 04/09/18 04/09/18 04/09/18 05:30 06:04 11:26 WBC RBC Hgb Hct MCV MCH MCHC RDW Plt Count MPV Absolute Neuts (auto) Neutrophils % Lymphocytes % Monocytes % Eosinophils % Basophils % Nucleated RBC % Sodium Potassium Chloride Carbon Dioxide Anion Gap BUN Creatinine Creat Clearance w eGFR POC Glucometer 302 379 Random Glucose Hemoglobin A1c % Calcium Phosphorus Magnesium Total Bilirubin AST ALT Alkaline Phosphatase B-Natriuretic Peptide 146.5 H Total Protein Albumin Opiates Screen Methadone Screen Barbiturate Screen Phencyclidine Screen Ur Amphetamines Screen MDMA (Ecstasy) Screen Benzodiazepines Screen Cocaine Screen U Marijuana (THC) Screen Active Medications Generic Name Dose Route Start Last Admin Trade Name Freq PRN Reason Stop Dose Admin Acetaminophen 650 mg 04/08/18 15:48 04/09/18 06:02 Tylenol - PO 650 mg Q6H PRN Administration FEVER Albuterol Sulfate 1 amp 04/09/18 10:46 Ventolin 0.083% Nebulizer Soln - NEB Q4H PRN SHORT OF BREATH/WHEEZING Albuterol/Ipratropium 1 amp 04/09/18 12:00 Duoneb - NEB RQID CATHLEEN Guaifenesin/Codeine Phosphate 5 ml 04/08/18 15:49 04/09/18 12:21 Robitussin Ac - PO 5 ml Q8H PRN Administration COUGH Heparin Sodium (Porcine) 5,000 unit 04/08/18 14:00 04/09/18 05:55 Heparin - SQ 5,000 unit TID CATHLEEN Administration Azithromycin 500 mg in 250 mls @ 250 mls/hr 04/09/18 10:00 04/09/18 10:43 Zithromax 500mg Ivpb (Pre-Docked) IVPB 250 mls/hr DAILY CATHLEEN Administration Sodium Chloride 1,000 mls @ 75 mls/hr 04/08/18 11:00 04/09/18 01:52 Normal Saline - IV 75 mls/hr ASDIR CATHLEEN Administration Insulin Aspart 1 vial 04/08/18 16:30 04/09/18 11:28 Novolog Vial Sliding Scale - SQ 10 units ACHS CATHLEEN Administration Protocol Methylprednisolone Sodium Succinate 40 mg 04/08/18 12:30 04/09/18 09:55 Solu-Medrol - IVPUSH 40 mg Q8H-IV CATHLEEN Administration Neomycin/Polymyxin/Hydrocortisone 4 drop 04/08/18 12:43 04/09/18 12:23 Cortisporin Otic Solution - 4 drop Q6HPO CATHLEEN Administration Nicotine 7 mg 04/08/18 12:30 04/09/18 09:58 Nicoderm Patch - TD 7 mg DAILY CATHLEEN Administration ASSESSMENT/PLAN: 62 yo F with PMHx of DM, HTN, KAITLIN (not currently on CPAP), thyroid disease, diverticulitis, disc prolapse, immune hepatitis, current smoker, admitted with worsening non productive cough and fever x3 days. Sepsis secondary to Community Acquired Pneumonia -CXR noted, febrile on admission -Azithromycin and Rocephin -Requiring O2 which she does not require at home, will attempt to wean as able New Dx COPD -Pulm consult appreciated -Agree with short course of SoluMedrol and Abx -PFTs as outpatient -Pt mentions autoimmune hepatitis, will order a1AT Hypothyroid -Synthroid not verified by pharmacy but pt states she takes, will reattempt to verify -Synthroid 75 mcg PO AM HTN -Lopressor 12.5 mg PO BID IDDM -BGMs -Insulin sliding scale DVT Prophylaxis -Heparin 5000 units SQ TID FEN -Fluids: NS @ 75 cc/hr -Electrolytes: HypoMag, HypoPhos, repleting, BMP in AM -Nutrition: Diabetic Na controlled diet Disposition Med/Surg Visit type - Emergency Visit Emergency Visit: Yes ED Registration Date: 04/08/18 Care time: The patient presented to the Emergency Department on the above date and was hospitalized for further evaluation of their emergent condition. - New Patient This patient is new to me today: Yes Date on this admission: 04/09/18 - Critical Care Critical Care patient: No
[2018-04-09] MEDS ORDERED: MAGNESIUM SULF 50% (8.12 MEQ/2 ML-1 GM VIAL) IVPB ONE (14:09)
[2018-04-09] MEDS ORDERED: NAPH,MB-DB/K PH,MBDB POWDER PACKET PO SCH ×2 (14:10→22:00)
[2018-04-09] MEDS ORDERED: CEFTRIAXONE 1 GM in DEXTROSE 5%-WATER - 50 ML IVPB SCH (16:30)
[2018-04-09] MEDS: GEMFIBROZIL 600 MG TABLET (FP) PO SCH (16:39)
[2018-04-09] MEDS: EZETIMIBE 10 MG TABLET (FP) PO SCH (16:39)
--- NOTE | 2018-04-09 16:48 | PN ---
Teaching Attending Note Name of Resident: Clive Jameson ATTENDING PHYSICIAN STATEMENT I saw and evaluated the patient. I reviewed the resident's note and discussed the case with the resident. I agree with the resident's findings and plan as documented. SUBJECTIVE: Still feels SOB. Last fever yesterday morning. Cough productive of yellow sputum. No chest pain/hemoptysis. OBJECTIVE: T max yest 101.7. Hemodynamically Stable. Last Vital Signs Temp Pulse Resp BP Pulse Ox 97.7 F 101 H 21 H 123/69 98 04/09/18 14:00 04/09/18 14:00 04/09/18 14:00 04/09/18 14:00 04/09/18 09:00 HEENT -Atraumatic, Normocephalic Heart - S1, S2, RRR Lungs - bilateral wheeze with bibasal crackles. Abdomen - soft, non-tender. Bowel Sounds normal. Extremities - No calf swelling/tenderness. Laboratory Results - last 24 hr 04/08/18 04/08/18 04/09/18 16:40 21:16 05:30 WBC 9.0 RBC 3.99 Hgb 12.4 Hct 38.0 MCV 95.5 MCH 31.0 MCHC 32.5 RDW 15.1 Plt Count 298 MPV 8.0 Absolute Neuts (auto) 7.6 Neutrophils % 84.3 H D Lymphocytes % 8.5 D Monocytes % 6.5 Eosinophils % 0.0 D Basophils % 0.7 Nucleated RBC % 0 Sodium Potassium Chloride Carbon Dioxide Anion Gap BUN Creatinine Creat Clearance w eGFR POC Glucometer 305 345 Random Glucose Hemoglobin A1c % Calcium Phosphorus Magnesium Total Bilirubin AST ALT Alkaline Phosphatase B-Natriuretic Peptide Total Protein Albumin 04/09/18 04/09/18 04/09/18 05:30 05:30 05:30 WBC RBC Hgb Hct MCV MCH MCHC RDW Plt Count MPV Absolute Neuts (auto) Neutrophils % Lymphocytes % Monocytes % Eosinophils % Basophils % Nucleated RBC % Sodium 135 L Potassium 4.4 Chloride 104 Carbon Dioxide 24 Anion Gap 7 L BUN 11 Creatinine 0.7 Creat Clearance w eGFR > 60 POC Glucometer Random Glucose 293 H Hemoglobin A1c % 8.1 H Calcium 8.9 Phosphorus 1.8 L Magnesium 1.8 Total Bilirubin 0.4 AST 14 L ALT 16 Alkaline Phosphatase 58 B-Natriuretic Peptide 146.5 H Total Protein 7.4 Albumin 3.3 L 04/09/18 04/09/18 06:04 11:26 WBC RBC Hgb Hct MCV MCH MCHC RDW Plt Count MPV Absolute Neuts (auto) Neutrophils % Lymphocytes % Monocytes % Eosinophils % Basophils % Nucleated RBC % Sodium Potassium Chloride Carbon Dioxide Anion Gap BUN Creatinine Creat Clearance w eGFR POC Glucometer 302 379 Random Glucose Hemoglobin A1c % Calcium Phosphorus Magnesium Total Bilirubin AST ALT Alkaline Phosphatase B-Natriuretic Peptide Total Protein Albumin Current Medications Generic Name Dose Route Start Last Admin Trade Name Freq PRN Reason Stop Dose Admin Acetaminophen 650 mg 04/08/18 15:48 04/09/18 06:02 Tylenol - PO 650 mg Q6H PRN Administration FEVER Albuterol Sulfate 1 amp 04/09/18 10:46 Ventolin 0.083% Nebulizer Soln - NEB Q4H PRN SHORT OF BREATH/WHEEZING Albuterol/Ipratropium 1 amp 04/09/18 12:00 Duoneb - NEB RQID CATHLEEN Cyclobenzaprine HCl 5 mg 04/09/18 22:00 Cyclobenzaprine Hcl PO HS CATHLEEN Duloxetine HCl 120 mg 04/09/18 22:00 Cymbalta - PO HS CATHLEEN Ezetimibe 5 mg 04/09/18 16:30 Zetia - PO DAILY CATHLEEN Gemfibrozil 600 mg 04/09/18 16:30 Lopid - PO DAILY@1630 CATHLEEN Guaifenesin 10 ml 04/09/18 16:21 Robitussin Dm - PO Q4H PRN COUGH Heparin Sodium (Porcine) 5,000 unit 04/08/18 14:00 04/09/18 14:03 Heparin - SQ 5,000 unit TID CATHLEEN Administration Azithromycin 500 mg in 250 mls @ 250 mls/hr 04/09/18 10:00 04/09/18 10:43 Zithromax 500mg Ivpb (Pre-Docked) IVPB 250 mls/hr DAILY CATHLEEN Administration Sodium Chloride 1,000 mls @ 75 mls/hr 04/08/18 11:00 04/09/18 01:52 Normal Saline - IV 75 mls/hr ASDIR CATHLEEN Administration Ceftriaxone Sodium 1 gm/ 50 mls @ 100 mls/hr 04/09/18 16:30 Dextrose IVPB DAILY CATHLEEN Protocol Insulin Aspart 1 vial 04/09/18 16:05 Novolog Vial Sliding Scale - SQ ACHS [facility] Protocol Levothyroxine Sodium 75 mcg 04/10/18 07:00 Synthroid - PO DAILY@0700 [facility] Methylprednisolone Sodium Succinate 40 mg 04/08/18 12:30 04/09/18 09:55 Solu-Medrol - IVPUSH 40 mg Q8H-IV CATHLEEN Administration Metoprolol Tartrate 12.5 mg 04/09/18 22:00 Lopressor - PO BID CATHLEEN Neomycin/Polymyxin/Hydrocortisone 4 drop 04/08/18 12:43 04/09/18 12:23 Cortisporin Otic Solution - 4 drop Q6HPO CATHLEEN Administration Nicotine 7 mg 04/08/18 12:30 04/09/18 09:58 Nicoderm Patch - TD 7 mg DAILY [facility] Administration Non-Formulary Medication 5 mg 04/09/18 22:00 Pilocarpine Hcl [Pilocarpine Hcl] PO TID [facility] Potassium Phos/Sodium Phos 1 packet 04/09/18 14:10 Phos-Nak Packet - PO 04/10/18 10:01 BID [facility] Pregabalin 50 mg 04/09/18 22:00 Lyrica - PO BID [facility] Quetiapine Fumarate 50 mg 04/09/18 22:00 Seroquel - PO BID [facility] Quetiapine Fumarate 300 mg 04/09/18 22:00 Seroquel Xr - PO HS [facility] Timolol Maleate 1 drop 04/09/18 16:30 Timoptic 0.5% OU DAILY [facility] Trazodone HCl 100 mg 04/09/18 22:00 Desyrel - PO HS [facility] ASSESSMENT AND PLAN: 62 year old female smoker with HTN, DM 2, KAITLIN (not on CPAP), Hx of Diverticulitis, Hypothyroidism, autoimmune hepatitis, presented with 3 day history of cough and fever, admitted 04/08 with Sepsis secondary to bilateral pneumonia with possible new COPD diagnosis. 1. Sepsis secondary to bilateral Pneumonia. Continue Rocephin/Zithromax. Wean off O2. 2. Possible COPD exacerbation given smoking history and bilateral wheeze Continue DuoNebs, Solumedrol 3. Acute Hypoxic Resp Failure secondary to 1 and 2 Wean off Supplemental O2. Continue DuoNebs, Solumedrol and Abx. Pulm consulted. 4. Acute Otitis Externa - Continue Neomycin/Polymyxin/Hydrocortisone drops. 5. DM 2 - uncontrolled, A1C 8.1. Continue Sliding scale. Will increase dosing tier. 6. HTN - continue Lopressor. 7. KAITLIN (not currently on CPAP) - supplemental O2 for Sats < 90% 8. Hypothyroidism - Continue Synthroid. 9. Unknown Psychiatric Disorder - Continue Cymbalta, Seroquel, Trazodone. Will attempt to get records. 10. HLD - Continue Zetia, Lopid. 11. Hypophosphatemia - repleted. DVT Px - Heparin SQ
--- NOTE | 2018-04-09 18:19 | ECHO ---
Name: NATHANIEL MÁRQUEZ Exam:Adult Echocardiogram Study Date: 04/09/2018 01:16 PM Age: 62 yrs Reason For Study: SOB Height: 65 in Weight: 182 lb BSA: 1.9 m2 MMode/2D Measurements & Calculations IVSd: 0.96 cm Ao root diam: 2.5 cm LVIDd: 4.5 cm LA dimension: 3.7 cm LVIDs: 3.2 cm LVPWd: 0.87 cm EDV(Teich): 92.1 ml ESV(Teich): 40.4 ml Doppler Measurements & Calculations MV E max eden: 56.3 cm/sec TR max eden: 229.8 cm/sec MV A max eden: 103.7 cm/sec TR max P.1 mmHg MV E/A: 0.54 MV dec time: 0.13 sec Med Peak E' [place]: 5.0 cm/sec Med E/e': 11.2 Lat Peak E' [place]: 8.2 cm/sec Lat E/e': 6.8 Procedure The study was technically difficult with many images being suboptimal in quality. Left Ventricle The left ventricular size, thickness and function are normal. Grade I diastolic dysfunction, (abnorma l relaxation pattern). Right Ventricle The right ventricle is grossly normal size. The right ventricular systolic function is grossly normal . Atria Normal left and right atrial size and function. Tricuspid Valve There is mild tricuspid regurgitation. Right ventricular systolic pressure is normal. Great Vessels The aortic root is normal size. Pericardium/Pleura There is no pericardial effusion. Interpretation Summary The study was technically difficult with many images being suboptimal in quality. The left ventricular size, thickness and function are normal Grade I diastolic dysfunction, (abnormal relaxation pattern). The right ventricular systolic function is grossly normal. Normal left and right atrial size and function. There is mild tricuspid regurgitation. Right ventricular systolic pressure is normal. The aortic root is normal size. There is no pericardial effusion. Cristhian Walton MD 04/09/2018 06:19 PM
--- NOTE | 2018-04-09 19:04 | EKG ---
Test Reason : Blood Pressure : / mmHG Vent. Rate : 113 BPM Atrial Rate : 113 BPM P-R Int : 148 ms QRS Dur : 070 ms QT Int : 318 ms P-R-T Axes : 037 244 041 degrees QTc Int : 436 ms SINUS TACHYCARDIA RIGHT SUPERIOR AXIS DEVIATION RIGHT VENTRICULAR HYPERTROPHY SEPTAL INFARCT , AGE UNDETERMINED ABNORMAL ECG NO PREVIOUS ECGS AVAILABLE Confirmed by GEOFF CHRISTIE MD ([id number]) on 04/09/2018 7:04:14 PM Referred By: Confirmed By:GEOFF CHRISTIE MD
[2018-04-09] MEDS: TIMOLOL 0.5% OPHTHALMIC SOL 5 ML BOTTLE OU SCH (19:39)
[2018-04-09] MEDS ORDERED: INSULIN (NOVOLOG) ASPART 100 UNITS/ML 10ML VIAL ONE (21:24)
[2018-04-09] MEDS: DULoxetine HCL 30 MG CAPSULE.DR (FP) PO SCH (21:40)
[2018-04-09] MEDS: METOPROLOL TARTRATE 25 MG TABLET (FP) PO SCH (21:40)
[2018-04-09] MEDS: PREGABALIN 50 MG CAPSULE PO SCH (21:40)
[2018-04-09] MEDS: traZODone HCL 50 MG TABLET (FP) PO SCH (21:40)
[2018-04-09] MEDS ORDERED: PATIENT'S OWN MEDICATION (NON-FORMULARY) (Pilocarpine Hcl [Pilocarpine Hcl] 5 MG) PO SCH (22:00)
[2018-04-09] MEDS ORDERED: QUEtiapine FUMARATE 50 MG TABLET PO SCH (22:00)
[2018-04-09] MEDS: CYCLOBENZAPRINE HCL 5 MG TABLET PO SCH (22:23)
[2018-04-10] MEDS: methylPREDNISolone NA SUCC 40 MG/1 ML VIAL IVPUSH SCH ×5 (01:04→22:05)
[2018-04-10] MEDS: INSULIN SLIDING SCALE (NOVOLOG) 1 VIAL SQ SCH ×4 (06:11→22:11)
[2018-04-10] MEDS: LEVOTHYROXINE NA 75 MCG TABLET (FP) PO SCH (06:12)
[2018-04-10] MEDS: NEOMYCIN/POLYMYXN/HC OTIC SOLUTION 10 ML BOTTLE AS SCH ×5 (06:12→22:59)
[2018-04-10] MEDS: HEPARIN NA (PORCINE) 5,000 UNITS/ML 1ML VIAL SQ SCH ×3 (06:12→22:05)
[2018-04-10 06:37] LABS: HEMATOCRIT 35.5 % (32.4-45.2); HEMOGLOBIN 11.4 GM/dL (10.7-15.3); MCH 31.1 pg (25.7-33.7); MCHC 32.2 g/dl (32.0-36.0); MEAN CELL VOLUME 96.5 fl (80-96); MEAN PLT VOLUME 8.4 fl (7.5-11.1); PLATELET COUNT 320 K/MM3 (134-434); RBC 3.68 M/mm3 (3.60-5.2); RDW 15.6 % (11.6-15.6); WHITE BLOOD COUNT 7.1 K/mm3 (4.0-10.0)
[2018-04-10 07:10] LABS: ANION GAP 6 MMOL/L (8-16); BLOOD UREA NITROGEN 13 mg/dL (7-18); CALCIUM 8.4 mg/dL (8.5-10.1); CHLORIDE 103 mmol/L (98-107); CO2 27 mmol/L (21-32); CREATININE 0.7 mg/dL (0.55-1.3); GLUCOSE,RANDOM 216 mg/dL (74-106); MAGNESIUM 2.4 mg/dL (1.8-2.4); PHOSPHOROUS 3.3 mg/dL (2.5-4.9); POTASSIUM 4.9 mmol/L (3.5-5.1); SODIUM 136 mmol/L (136-145)
[2018-04-10] MEDS: ALBUTEROL SO4 2.5/IPRATROPIUM 0.5 INH SOL 3 ML VIAL.NEB. NEB SCH ×4 (07:30→20:04)
--- NOTE | 2018-04-10 07:56 | PN ---
Physical Exam: SUBJECTIVE: Patient seen and examined this AM. She states that she is feeling a little better today than yesterday but that her cough is not resolving and she thinks it is a little worse than yesterday. OBJECTIVE: Vital Signs Period Temp Pulse Resp BP Sys/De Santiago Pulse Ox Last 24 Hr 97.4 F-98.3 F 65-101 20-21 92-143/53-83 98-98 GENERAL: A&O, no acute distress HEAD: Normocephalic, atraumatic. EYES: PERRL, no scleral icterus EARS, NOSE, THROAT: oropharynx clear without exudates. Moist mucous membranes. NECK: supple without lymphadenopathy LUNGS: Diffuse wheezes HEART: Regular rate and rhythm, normal S1 and S2 without murmur ABDOMEN: Soft, nontender to palpation, normoactive bowel sounds MUSCULOSKELETAL: No bony deformities or tenderness. EXTREMITIES: 2+ pulses, warm, well-perfused. No peripheral edema. NEUROLOGICAL: Cranial nerves II-XII grossly intact. Normal speech. PSYCHIATRIC: Cooperative. Good eye contact. Appropriate mood and affect. SKIN: Warm, dry, no rashes or lesions noted Laboratory Results - last 24 hr 04/09/18 04/09/18 04/09/18 05:30 11:26 16:46 WBC RBC Hgb Hct MCV MCH MCHC RDW Plt Count MPV Sodium Potassium Chloride Carbon Dioxide Anion Gap BUN Creatinine Creat Clearance w eGFR POC Glucometer 379 331 Random Glucose Hemoglobin A1c % 8.1 H Calcium Phosphorus Magnesium 04/09/18 04/10/18 04/10/18 21:42 05:55 05:55 WBC 7.1 RBC 3.68 Hgb 11.4 Hct 35.5 MCV 96.5 H MCH 31.1 MCHC 32.2 RDW 15.6 Plt Count 320 MPV 8.4 Sodium 136 Potassium 4.9 Chloride 103 Carbon Dioxide 27 Anion Gap 6 L BUN 13 Creatinine 0.7 Creat Clearance w eGFR > 60 POC Glucometer 263 Random Glucose 216 H Hemoglobin A1c % Calcium 8.4 L Phosphorus 3.3 Magnesium 2.4 04/10/18 06:09 WBC RBC Hgb Hct MCV MCH MCHC RDW Plt Count MPV Sodium Potassium Chloride Carbon Dioxide Anion Gap BUN Creatinine Creat Clearance w eGFR POC Glucometer 222 Random Glucose Hemoglobin A1c % Calcium Phosphorus Magnesium Active Medications Generic Name Dose Route Start Last Admin Trade Name Freq PRN Reason Stop Dose Admin Acetaminophen 650 mg 04/08/18 15:48 04/09/18 06:02 Tylenol - PO 650 mg Q6H PRN Administration FEVER Albuterol Sulfate 1 amp 04/09/18 10:46 04/10/18 00:23 Ventolin 0.083% Nebulizer Soln - NEB 1 amp Q4H PRN Administration SHORT OF BREATH/WHEEZING Albuterol/Ipratropium 1 amp 04/09/18 12:00 04/09/18 20:29 Duoneb - NEB 1 amp RQID CATHLEEN Administration Cyclobenzaprine HCl 5 mg 04/09/18 22:00 04/09/18 22:23 Cyclobenzaprine Hcl PO 5 mg HS CATHLEEN Administration Duloxetine HCl 120 mg 04/09/18 22:00 04/09/18 21:40 Cymbalta - PO 120 mg HS CATHLEEN Administration Ezetimibe 5 mg 04/09/18 16:30 04/09/18 16:39 Zetia - PO 5 mg DAILY C[facility]LEEN Administration Gemfibrozil 600 mg 04/09/18 16:30 04/09/18 16:39 Lopid - PO 600 mg DAILY@1630 CATHLEEN Administration Guaifenesin 10 ml 04/09/18 16:21 Robitussin Dm - PO Q4H PRN COUGH Heparin Sodium (Porcine) 5,000 unit 04/08/18 14:00 04/10/18 06:12 Heparin - SQ 5,000 unit TID CATHLEEN Administration Azithromycin 500 mg in 250 mls @ 250 mls/hr 04/09/18 10:00 04/09/18 10:43 Zithromax 500mg Ivpb (Pre-Docked) IVPB 250 mls/hr DAILY CATHLEEN Administration Sodium Chloride 1,000 mls @ 75 mls/hr 04/08/18 11:00 04/09/18 21:39 Normal Saline - IV 75 mls/hr ASDIR C[facility]EN Administration Ceftriaxone Sodium 1 gm/ 50 mls @ 100 mls/hr 04/10/18 10:00 Dextrose IVPB DAILY C[facility]LEEN Protocol Insulin Aspart 1 vial 04/09/18 16:05 04/10/18 06:11 Novolog Vial Sliding Scale - SQ 5 units ACHS CATHLEEN Administration Protocol Levothyroxine Sodium 75 mcg 04/10/18 07:00 04/10/18 06:12 Synthroid - PO 75 mcg DAILY@0700 CATHLEEN Administration Methylprednisolone Sodium Succinate 40 mg 04/08/18 12:30 04/10/18 01:04 Solu-Medrol - IVPUSH 40 mg Q8H-IV CATHLEEN Administration Metoprolol Tartrate 12.5 mg 04/09/18 22:00 04/09/18 21:40 Lopressor - PO 12.5 mg BID CATHLEEN Administration Neomycin/Polymyxin/Hydrocortisone 4 drop 04/08/18 12:43 04/10/18 06:12 Cortisporin Otic Solution - 4 drop Q6HPO CATHLEEN Administration Nicotine 7 mg 04/08/18 12:30 04/09/18 22:24 Nicoderm Patch - TD 7 mg DAILY CATHLEEN Administration Non-Formulary Medication 5 mg 04/09/18 22:00 Pilocarpine Hcl [Pilocarpine Hcl] PO TID CATHLEEN Pregabalin 50 mg 04/09/18 22:00 04/09/18 21:40 Lyrica - PO 50 mg BID CATHLEEN Administration Quetiapine Fumarate 300 mg 04/09/18 22:00 04/09/18 22:24 Seroquel Xr - PO 300 mg HS CATHLEEN Administration Quetiapine Fumarate 50 mg 04/10/18 10:00 Seroquel - PO BID CATHLEEN Timolol Maleate 1 drop 04/09/18 16:30 04/09/18 19:39 Timoptic 0.5% OU 1 drop DAILY CATHLEEN Administration Trazodone HCl 100 mg 04/09/18 22:00 04/09/18 21:40 Desyrel - PO 100 mg HS CATHLEEN Administration ASSESSMENT/PLAN: 62 yo F with PMHx of DM, HTN, KAITLIN (not currently on CPAP), thyroid disease, diverticulitis, disc prolapse, immune hepatitis, current smoker, admitted with worsening non productive cough and fever x3 days. Sepsis secondary to Community Acquired Pneumonia -CXR noted, febrile on admission -Azithromycin and Rocephin -Weaned off of O2 New Dx COPD -Pulm consult appreciated -Agree with short course of SoluMedrol and Abx -Increased SoluMedrol to 40 mg Q6 from Q8 -PFTs as outpatient -Pt mentions autoimmune hepatitis, will order a1AT Hypothyroid -Synthroid 75 mcg PO AM HTN -Lopressor 12.5 mg PO BID IDDM -BGMs -Insulin sliding scale DVT Prophylaxis -Heparin 5000 units SQ TID FEN -Fluids: NS @ 75 cc/hr -Electrolytes: No Abnormalities, BMP in AM -Nutrition: Diabetic Na controlled diet Disposition Med/Surg Visit type - Emergency Visit Emergency Visit: Yes ED Registration Date: 04/08/18 Care time: The patient presented to the Emergency Department on the above date and was hospitalized for further evaluation of their emergent condition. - New Patient This patient is new to me today: No - Critical Care Critical Care patient: No
[2018-04-10] MEDS ORDERED: CEFTRIAXONE 1 GM in DEXTROSE 5%-WATER - 50 ML IVPB SCH (10:00)
--- NOTE | 2018-04-10 10:09 | PN ---
Progress Note (short form) - Note Progress Note: PULMONARY Still with shortness of breath, chest tightness, cough and wheezing. Vital Signs Period Temp Pulse Resp BP Sys/De [place] Pulse Ox Last 24 Hr 97.4 F-98.3 F 65-101 20-21 92-143/53-83 98 Gen: frequent cough Heart: RRR Lung: bilateral rhonchi, wheezes Abd: soft, nontender Ext: no edema CBC, BMP 04/10/18 05:55 04/10/18 05:55 Active Medications Acetaminophen (Tylenol -) 650 mg PO Q6H PRN PRN Reason: FEVER Last Admin: 04/09/18 06:02 Dose: 650 mg Albuterol Sulfate (Ventolin 0.083% Nebulizer Soln -) 1 amp NEB Q4H PRN PRN Reason: SHORT OF BREATH/WHEEZING Last Admin: 04/10/18 00:23 Dose: 1 amp Albuterol/Ipratropium (Duoneb -) 1 amp NEB RQID [facility] Last Admin: 04/10/18 07:30 Dose: 1 amp Cyclobenzaprine HCl (Cyclobenzaprine Hcl) 5 mg PO HS [facility] Last Admin: 04/09/18 22:23 Dose: 5 mg Duloxetine HCl (Cymbalta -) 120 mg PO HS [facility] Last Admin: 04/09/18 21:40 Dose: 120 mg Ezetimibe (Zetia -) 5 mg PO DAILY [facility] Last Admin: 04/09/18 16:39 Dose: 5 mg Gemfibrozil (Lopid -) 600 mg PO DAILY@1630 [facility] Last Admin: 04/09/18 16:39 Dose: 600 mg Guaifenesin (Robitussin Dm -) 10 ml PO Q4H PRN PRN Reason: COUGH Heparin Sodium (Porcine) (Heparin -) 5,000 unit SQ TID [facility] Last Admin: 04/10/18 06:12 Dose: 5,000 unit Azithromycin (Zithromax 500mg Ivpb (Pre-Docked)) 500 mg in 250 mls @ 250 mls/ hr IVPB DAILY [facility] Last Admin: 04/09/18 10:43 Dose: 250 mls/hr Sodium Chloride (Normal Saline -) 1,000 mls @ 75 mls/hr IV ASDIR [facility] Last Admin: 04/09/18 21:39 Dose: 75 mls/hr Ceftriaxone Sodium 1 gm/ (Dextrose) 50 mls @ 100 mls/hr IVPB DAILY [facility]; Protocol Insulin Aspart (Novolog Vial Sliding Scale -) 1 vial SQ ACHS [facility]; Protocol Last Admin: 04/10/18 06:11 Dose: 5 units Levothyroxine Sodium (Synthroid -) 75 mcg PO DAILY@0700 [facility] Last Admin: 04/10/18 06:12 Dose: 75 mcg Methylprednisolone Sodium Succinate (Solu-Medrol -) 40 mg IVPUSH Q8H-IV [facility] Last Admin: 04/10/18 01:04 Dose: 40 mg Metoprolol Tartrate (Lopressor -) 12.5 mg PO BID [facility] Last Admin: 04/09/18 21:40 Dose: 12.5 mg Neomycin/Polymyxin/Hydrocortisone (Cortisporin Otic Solution -) 4 drop Q6HPO [facility] Last Admin: 04/10/18 06:12 Dose: 4 drop Nicotine (Nicoderm Patch -) 7 mg TD DAILY [facility] Last Admin: 04/09/18 22:24 Dose: 7 mg Non-Formulary Medication (Pilocarpine Hcl [Pilocarpine Hcl]) 5 mg PO TID [facility] Pregabalin (Lyrica -) 50 mg PO BID [facility] Last Admin: 04/09/18 21:40 Dose: 50 mg Quetiapine Fumarate (Seroquel Xr -) 300 mg PO [facility] Last Admin: 04/09/18 22:24 Dose: 300 mg Quetiapine Fumarate (Seroquel -) 50 mg PO BID [facility] Timolol Maleate (Timoptic 0.5%) 1 drop OU DAILY [facility] Last Admin: 04/09/18 19:39 Dose: 1 drop Trazodone HCl (Desyrel -) 100 mg PO HS [facility] Last Admin: 04/09/18 21:40 Dose: 100 mg A/P Pneumonia Acute COPD Exacerbation HTN DM Hypothyroidism KAITLIN Smoker - continue antibiotics - f/u cultures - will increase medrol to q6h - inhaled bronchodilators standing and PRN - O2 to keep SpO2 >90% - cough suppressants - smoking cessation - outpt PFTs and f/u - DVT prophylaxis Problem List - Problems (1) PNA (pneumonia) Code(s): J18.9 - PNEUMONIA, UNSPECIFIED ORGANISM Qualifiers: Pneumonia type: due to unspecified organism Laterality: bilateral Lung location: unspecified part of lung Qualified Code(s): J18.9 - Pneumonia, unspecified organism (2) COPD with acute exacerbation Code(s): J44.1 - CHRONIC OBSTRUCTIVE PULMONARY DISEASE W (ACUTE) EXACERBATION (3) HTN (hypertension) Code(s): I10 - ESSENTIAL (PRIMARY) HYPERTENSION (4) Diabetes Code(s): E11.9 - TYPE 2 DIABETES MELLITUS WITHOUT COMPLICATIONS (5) Hypothyroidism Code(s): E03.9 - HYPOTHYROIDISM, UNSPECIFIED
[2018-04-10] MEDS ORDERED: DEXTROSE 5%-WATER - 50 ML IVPB ONE (10:27)
[2018-04-10] MEDS ORDERED: cefTRIAXone SODIUM 1 GM VIAL ONE (10:27)
[2018-04-10] MEDS: CEFTRIAXONE 1 GM in DEXTROSE 5%-WATER - 50 ML IVPB SCH (10:30)
[2018-04-10] MEDS: PREGABALIN 50 MG CAPSULE PO SCH ×2 (10:31→22:05)
[2018-04-10] MEDS: EZETIMIBE 10 MG TABLET (FP) PO SCH (10:31)
[2018-04-10] MEDS: METOPROLOL TARTRATE 25 MG TABLET (FP) PO SCH ×2 (10:32→22:05)
[2018-04-10] MEDS: AZITHROMYCIN IVPB 500 MG/250 ML BAG IVPB SCH (10:33)
[2018-04-10] MEDS: guaiFENesin/D-METHORPHAN HB 10 ML UNIT-DOSE CUPS PO PRN ×3 (10:40→19:10)
[2018-04-10] MEDS: TIMOLOL 0.5% OPHTHALMIC SOL 5 ML BOTTLE OU SCH (10:45)
[2018-04-10] MEDS: SODIUM CHLORIDE 1,000 ML IV SCH (11:37)
[2018-04-10] MEDS: NICOTINE 7 MG/24 HOURS TOPICAL PATCH TD SCH (14:39)
[2018-04-10] MEDS: BUDESONIDE/FORMETEROL FUMARATE 160/4.5 mcg INHALER IH SCH ×2 (14:39→22:06)
[2018-04-10] MEDS: GEMFIBROZIL 600 MG TABLET (FP) PO SCH (17:44)
--- NOTE | 2018-04-10 19:29 | PN ---
Teaching Attending Note Name of Resident: Clive Jameson ATTENDING PHYSICIAN STATEMENT I saw and evaluated the patient. I reviewed the resident's note and discussed the case with the resident. I agree with the resident's findings and plan as documented. SUBJECTIVE: Mild improvement in dyspnea, now off O2. Cough+. No fever/chills. OBJECTIVE: Afebrile, Hemodynamically Stable. Last Vital Signs Temp Pulse Resp BP Pulse Ox 97.8 F 59 L 20 150/72 98 04/10/18 17:17 04/10/18 17:17 04/10/18 17:17 04/10/18 17:17 04/10/18 09:00 HEENT -Atraumatic, Normocephalic Heart - S1, S2, RRR Lungs - bilateral wheeze with bibasal crackles. Abdomen - soft, non-tender. Bowel Sounds normal. Extremities - No calf swelling. No edema. Laboratory Results - last 24 hr 04/09/18 04/10/18 04/10/18 21:42 05:55 05:55 WBC 7.1 RBC 3.68 Hgb 11.4 Hct 35.5 MCV 96.5 H MCH 31.1 MCHC 32.2 RDW 15.6 Plt Count 320 MPV 8.4 Sodium 136 Potassium 4.9 Chloride 103 Carbon Dioxide 27 Anion Gap 6 L BUN 13 Creatinine 0.7 Creat Clearance w eGFR > 60 POC Glucometer 263 Random Glucose 216 H Calcium 8.4 L Phosphorus 3.3 Magnesium 2.4 04/10/18 04/10/18 04/10/18 06:09 11:38 17:40 WBC RBC Hgb Hct MCV MCH MCHC RDW Plt Count MPV Sodium Potassium Chloride Carbon Dioxide Anion Gap BUN Creatinine Creat Clearance w eGFR POC Glucometer 222 273 330 Random Glucose Calcium Phosphorus Magnesium Current Medications Generic Name Dose Route Start Last Admin Trade Name Freq PRN Reason Stop Dose Admin Acetaminophen 650 mg 04/08/18 15:48 04/09/18 06:02 Tylenol - PO 650 mg Q6H PRN Administration FEVER Albuterol Sulfate 1 amp 04/09/18 10:46 04/10/18 00:23 Ventolin 0.083% Nebulizer Soln - NEB 1 amp Q4H PRN Administration SHORT OF BREATH/WHEEZING Albuterol/Ipratropium 1 amp 04/09/18 12:00 04/10/18 15:36 Duoneb - NEB 1 amp RQID CATHLEEN Administration Budesonide/Formoterol Fumarate 2 puff 04/10/18 10:15 04/10/18 14:39 Symbicort 160/4.5mcg - IH 2 inh BID CATHLEEN Administration Cyclobenzaprine HCl 5 mg 04/09/18 22:00 04/09/18 22:23 Cyclobenzaprine Hcl PO 5 mg HS CATHLEEN Administration Duloxetine HCl 120 mg 04/09/18 22:00 04/09/18 21:40 Cymbalta - PO 120 mg HS CATHLEEN Administration Ezetimibe 5 mg 04/09/18 16:30 04/10/18 10:31 Zetia - PO 5 mg DAILY [facility] Administration Gemfibrozil 600 mg 04/09/18 16:30 04/10/18 17:44 Lopid - PO 600 mg DAILY@1630 [facility] Administration Guaifenesin 10 ml 04/09/18 16:21 04/10/18 19:10 Robitussin Dm - PO 10 ml Q4H PRN Administration COUGH Heparin Sodium (Porcine) 5,000 unit 04/08/18 14:00 04/10/18 14:42 Heparin - SQ 5,000 unit TID [facility]LEEN Administration Azithromycin 500 mg in 250 mls @ 250 mls/hr 04/09/18 10:00 04/10/18 10:33 Zithromax 500mg Ivpb (Pre-Docked) IVPB 250 mls/hr DAILY [facility] Administration Sodium Chloride 1,000 mls @ 75 mls/hr 04/08/18 11:00 04/10/18 11:37 Normal Saline - IV 75 mls/hr ASDIR [facility] Administration Ceftriaxone Sodium 1 gm/ 50 mls @ 100 mls/hr 04/10/18 10:00 04/10/18 10:30 Dextrose IVPB 100 mls/hr DAILY [facility] Administration Protocol Insulin Aspart 1 vial 04/09/18 16:05 04/10/18 17:41 Novolog Vial Sliding Scale - SQ 9 units ACHS [facility] Administration Protocol Levothyroxine Sodium 75 mcg 04/10/18 07:00 04/10/18 06:12 Synthroid - PO 75 mcg DAILY@0700 [facility] Administration Methylprednisolone Sodium Succinate 40 mg 04/10/18 10:15 04/10/18 14:44 Solu-Medrol - IVPUSH 40 mg Q6H-IV [facility] Administration Metoprolol Tartrate 12.5 mg 04/09/18 22:00 04/10/18 10:32 Lopressor - PO 12.5 mg BID [facility] Administration Neomycin/Polymyxin/Hydrocortisone 4 drop 04/08/18 12:43 04/10/18 17:44 Cortisporin Otic Solution - 4 drop Q6HPO [facility]LEEN Administration Nicotine 7 mg 04/08/18 12:30 04/10/18 14:39 Nicoderm Patch - TD Not Given DAILY [facility]LEEN Non-Formulary Medication 5 mg 04/09/18 22:00 Pilocarpine Hcl [Pilocarpine Hcl] PO TID [facility] Pregabalin 50 mg 04/09/18 22:00 04/10/18 10:31 Lyrica - PO 50 mg BID [facility] Administration Quetiapine Fumarate 300 mg 04/09/18 22:00 04/09/18 22:24 Seroquel Xr - PO 300 mg HS [facility] Administration Quetiapine Fumarate 50 mg 04/10/18 22:00 Seroquel - PO BID [facility] Timolol Maleate 1 drop 04/09/18 16:30 04/10/18 10:45 Timoptic 0.5% OU 1 drop DAILY [facility] Administration Trazodone HCl 100 mg 04/09/18 22:00 04/09/18 21:40 Desyrel - PO 100 mg HS [facility] Administration ASSESSMENT AND PLAN: 62 year old female smoker with HTN, DM 2, KAITLIN (not on CPAP), Hx of Diverticulitis, Hypothyroidism, autoimmune hepatitis, presented with 3 day history of cough and fever, admitted 04/08 with Sepsis secondary to bilateral pneumonia with possible new COPD diagnosis. 1. Sepsis secondary to bilateral Pneumonia. Continue Rocephin/Zithromax. Afebrile, Hemodynamically stable. 2. Possible COPD exacerbation given smoking history and bilateral wheeze - no prior hx of diagnosed COPD. Continue DuoNebs, Solumedrol - dose increased to 40mg q6h due to ongoing widespread polyphonic wheeze. For PFTs as outpatient. 3. Acute Hypoxic Resp Failure secondary to 1 and 2 - resolved Weaned off Supplemental O2. Continue DuoNebs, Solumedrol and Abx. Pulm following. 4. Acute Otitis Externa - Continue Neomycin/Polymyxin/Hydrocortisone drops. 5. DM 2 - uncontrolled, A1C 8.1. Continue Sliding scale. 6. HTN - continue Lopressor. 7. KAITLIN (not currently on CPAP) - supplemental O2 for Sats < 90% 8. Hypothyroidism - Continue Synthroid. 9. Unknown Psychiatric Disorder - Continue Cymbalta, Seroquel, Trazodone. 10. HLD - Continue Zetia, Lopid. 11. Hypophosphatemia - resolved s/p repletion. DVT Px - Heparin SQ
[2018-04-10] MEDS ORDERED: PT OWN MED DRAWER 7, Y5N ONE (21:59)
[2018-04-10] MEDS: traZODone HCL 50 MG TABLET (FP) PO SCH (22:04)
[2018-04-10] MEDS: CYCLOBENZAPRINE HCL 5 MG TABLET PO SCH (22:04)
[2018-04-10] MEDS: DULoxetine HCL 30 MG CAPSULE.DR (FP) PO SCH (22:04)
[2018-04-10] MEDS: QUEtiapine FUMARATE 50 MG TABLET PO SCH (22:05)
[2018-04-11] MEDS: guaiFENesin/D-METHORPHAN HB 10 ML UNIT-DOSE CUPS PO PRN (00:26)
[2018-04-11] MEDS: methylPREDNISolone NA SUCC 40 MG/1 ML VIAL IVPUSH SCH ×4 (01:59→21:05)
[2018-04-11] MEDS: INSULIN SLIDING SCALE (NOVOLOG) 1 VIAL SQ SCH ×4 (06:48→21:37)
[2018-04-11] MEDS: LEVOTHYROXINE NA 75 MCG TABLET (FP) PO SCH (06:48)
[2018-04-11] MEDS: NEOMYCIN/POLYMYXN/HC OTIC SOLUTION 10 ML BOTTLE AS SCH ×5 (06:48→17:22)
[2018-04-11] MEDS: HEPARIN NA (PORCINE) 5,000 UNITS/ML 1ML VIAL SQ SCH ×3 (06:48→21:06)
[2018-04-11] MEDS: SODIUM CHLORIDE 1,000 ML IV SCH ×2 (07:00→19:42)
[2018-04-11] MEDS: ALBUTEROL SO4 2.5/IPRATROPIUM 0.5 INH SOL 3 ML VIAL.NEB. NEB SCH ×4 (07:18→20:40)
--- NOTE | 2018-04-11 07:55 | PN ---
Physical Exam: SUBJECTIVE: Patient seen and examined this AM. She states her cough was bad yesterday but is presently improved. She has not been requiring O2 yesterday and is not sure why she is currently on it. Discussed with patient that O2 will be d/joni unless required later or desaturating. OBJECTIVE: Vital Signs Period Temp Pulse Resp BP Sys/[place] Pulse Ox Last 24 Hr 97.2 F-97.8 F 59-99 18-20 122-150/60-88 97-98 GENERAL: A&O, no acute distress HEAD: Normocephalic, atraumatic. EYES: PERRL, no scleral icterus EARS, NOSE, THROAT: oropharynx clear without exudates. Moist mucous membranes. NECK: supple without lymphadenopathy LUNGS: Diffuse wheezes improved from yesterday HEART: Regular rate and rhythm, normal S1 and S2 without murmur ABDOMEN: Soft, nontender to palpation, normoactive bowel sounds MUSCULOSKELETAL: No bony deformities or tenderness. EXTREMITIES: 2+ pulses, warm, well-perfused. No peripheral edema. NEUROLOGICAL: Cranial nerves II-XII grossly intact. Normal speech. PSYCHIATRIC: Cooperative. Good eye contact. Appropriate mood and affect. SKIN: Warm, dry, no rashes or lesions noted Laboratory Results - last 24 hr 04/10/18 04/10/18 04/10/18 05:55 11:38 17:40 POC Glucometer 273 330 Stylo-4-Ppobgwrrbss 172 04/10/18 04/11/18 22:03 06:47 POC Glucometer 304 306 [id number] Active Medications Generic Name Dose Route Start Last Admin Trade Name Freq PRN Reason Stop Dose Admin Acetaminophen 650 mg 04/08/18 15:48 04/09/18 06:02 Tylenol - PO 650 mg Q6H PRN Administration FEVER Albuterol Sulfate 1 amp 04/09/18 10:46 04/10/18 00:23 Ventolin 0.083% Nebulizer Soln - NEB 1 amp Q4H PRN Administration SHORT OF BREATH/WHEEZING Albuterol/Ipratropium 1 amp 04/09/18 12:00 04/11/18 07:18 Duoneb - NEB 1 amp RQID CATHLEEN Administration Budesonide/Formoterol Fumarate 2 puff 04/10/18 10:15 04/10/18 22:06 Symbicort 160/4.5mcg - IH 2 inh BID [facility] Administration Cyclobenzaprine HCl 5 mg 04/09/18 22:00 04/10/18 22:04 Cyclobenzaprine Hcl PO 5 mg HS [facility] Administration Duloxetine HCl 120 mg 04/09/18 22:00 04/10/18 22:04 Cymbalta - PO 120 mg HS [facility] Administration Ezetimibe 5 mg 04/09/18 16:30 04/10/18 10:31 Zetia - PO 5 mg DAILY [facility] Administration Gemfibrozil 600 mg 04/09/18 16:30 04/10/18 17:44 Lopid - PO 600 mg DAILY@1630 [facility] Administration Guaifenesin 10 ml 04/09/18 16:21 04/11/18 00:26 Robitussin Dm - PO 10 ml Q4H PRN Administration COUGH Heparin Sodium (Porcine) 5,000 unit 04/08/18 14:00 04/11/18 06:48 Heparin - SQ 5,000 unit TID [facility] Administration Azithromycin 500 mg in 250 mls @ 250 mls/hr 04/09/18 10:00 04/10/18 10:33 Zithromax 500mg Ivpb (Pre-Docked) IVPB 250 mls/hr DAILY [facility] Administration Sodium Chloride 1,000 mls @ 75 mls/hr 04/08/18 11:00 04/11/18 07:00 Normal Saline - IV 75 mls/hr ASDIR [facility] Administration Ceftriaxone Sodium 1 gm/ 50 mls @ 100 mls/hr 04/10/18 10:00 04/10/18 10:30 Dextrose IVPB 100 mls/hr DAILY [facility] Administration Protocol Insulin Aspart 1 vial 04/09/18 16:05 04/11/18 06:48 Novolog Vial Sliding Scale - SQ 9 units ACHS [facility] Administration Protocol Levothyroxine Sodium 75 mcg 04/10/18 07:00 04/11/18 06:48 Synthroid - PO 75 mcg DAILY@0700 [facility] Administration Methylprednisolone Sodium Succinate 40 mg 04/10/18 10:15 04/11/18 01:59 Solu-Medrol - IVPUSH 40 mg Q6H-IV [facility] Administration Metoprolol Tartrate 12.5 mg 04/09/18 22:00 04/10/18 22:05 Lopressor - PO 12.5 mg BID [facility] Administration Neomycin/Polymyxin/Hydrocortisone 4 drop 04/08/18 12:43 04/11/18 06:53 Cortisporin Otic Solution - Not Given Q6HPO [facility] Nicotine 7 mg 04/08/18 12:30 04/10/18 14:39 Nicoderm Patch - TD Not Given DAILY [facility] Non-Formulary Medication 5 mg 04/09/18 22:00 Pilocarpine Hcl [Pilocarpine Hcl] PO TID [facility] Pregabalin 50 mg 04/09/18 22:00 04/10/18 22:05 Lyrica - PO 50 mg BID [facility] Administration Quetiapine Fumarate 300 mg 04/09/18 22:00 04/10/18 22:04 Seroquel Xr - PO 300 mg HS [facility] Administration Quetiapine Fumarate 50 mg 04/10/18 22:00 04/10/18 22:05 Seroquel - PO 50 mg BID [facility] Administration Timolol Maleate 1 drop 04/09/18 16:30 04/10/18 10:45 Timoptic 0.5% OU 1 drop DAILY [facility] Administration Trazodone HCl 100 mg 04/09/18 22:00 04/10/18 22:04 Desyrel - PO 100 mg HS [facility] Administration ASSESSMENT/PLAN: 62 yo F with PMHx of DM, HTN, KAITLIN (not currently on CPAP), thyroid disease, diverticulitis, disc prolapse, immune hepatitis, current smoker, admitted with worsening non productive cough and fever x3 days. Sepsis secondary to Community Acquired Pneumonia -CXR noted, febrile on admission -Azithromycin and Rocephin -Weaned off of O2 New Dx COPD -Pulm consult appreciated -Agree with short course of SoluMedrol and Abx -SoluMedrol to 40 mg Q6 from Q8, can likely taper down tomorrow -PFTs as outpatient -Pt mentions autoimmune hepatitis, a1AT normal Hypothyroid -Synthroid 75 mcg PO AM HTN -Lopressor 12.5 mg PO BID IDDM -BGMs -Insulin sliding scale, has required multiple sliding scale adjustments, likely secondary to steroid use -Will monitor and adjust as steroid are tapered down -Advise outpatient follow up for further glycemic control DVT Prophylaxis -Heparin 5000 units SQ TID FEN -Fluids: NS @ 75 cc/hr -Electrolytes: No Abnormalities, BMP in AM -Nutrition: Diabetic Na controlled diet Disposition Med/Surg Visit type - Emergency Visit Emergency Visit: Yes ED Registration Date: 04/08/18 Care time: The patient presented to the Emergency Department on the above date and was hospitalized for further evaluation of their emergent condition. - New Patient This patient is new to me today: No - Critical Care Critical Care patient: No
[2018-04-11 08:10] LABS: ANION GAP 6 MMOL/L (8-16); BLOOD UREA NITROGEN 17 mg/dL (7-18); CALCIUM 8.4 mg/dL (8.5-10.1); CHLORIDE 103 mmol/L (98-107); CO2 28 mmol/L (21-32); CREATININE 0.8 mg/dL (0.55-1.3); GLUCOSE,RANDOM 290 mg/dL (74-106); POTASSIUM 4.5 mmol/L (3.5-5.1); SODIUM 136 mmol/L (136-145)
[2018-04-11] MEDS ORDERED: QUEtiapine FUMARATE 25 MG TABLET (FP) ONE ×2 (09:06→20:55)
[2018-04-11] MEDS ORDERED: PT OWN MED DRAWER 7, Y5N ONE ×3 (09:06→20:56)
[2018-04-11] MEDS ORDERED: cefTRIAXone SODIUM 1 GM VIAL ONE (09:07)
[2018-04-11] MEDS ORDERED: DEXTROSE 5%-WATER - 50 ML IVPB ONE (09:07)
[2018-04-11] MEDS: METOPROLOL TARTRATE 25 MG TABLET (FP) PO SCH ×2 (09:11→21:06)
[2018-04-11] MEDS: PREGABALIN 50 MG CAPSULE PO SCH ×2 (09:12→21:07)
[2018-04-11] MEDS: QUEtiapine FUMARATE 50 MG TABLET PO SCH ×2 (09:12→21:07)
[2018-04-11] MEDS: EZETIMIBE 10 MG TABLET (FP) PO SCH (09:13)
[2018-04-11] MEDS: CEFTRIAXONE 1 GM in DEXTROSE 5%-WATER - 50 ML IVPB SCH (09:14)
[2018-04-11] MEDS: BUDESONIDE/FORMETEROL FUMARATE 160/4.5 mcg INHALER IH SCH ×2 (09:15→21:08)
[2018-04-11] MEDS: TIMOLOL 0.5% OPHTHALMIC SOL 5 ML BOTTLE OU SCH (09:17)
[2018-04-11] MEDS: NICOTINE 7 MG/24 HOURS TOPICAL PATCH TD SCH (09:18)
[2018-04-11] MEDS: AZITHROMYCIN IVPB 500 MG/250 ML BAG IVPB SCH (10:20)
--- NOTE | 2018-04-11 11:56 | PN ---
Progress Note (short form) - Note Progress Note: PULMONARY Moderate subjective improvement Gen: frequent cough Heart: RRR Lung: bilateral rhonchi, wheezes Abd: soft, nontender Ext: no edema Meds/labs/images/micro/notes reviewed A/P Pneumonia Acute COPD Exacerbation HTN DM Hypothyroidism KAITLIN Smoker - antibiotics - f/u cultures - medrol to q6h - inhaled bronchodilators standing and PRN - O2 to keep SpO2 >90% - cough suppressants - smoking cessation - outpt PFTs and f/u - DVT prophylaxis Heidi MAST MD
[2018-04-11] MEDS: GEMFIBROZIL 600 MG TABLET (FP) PO SCH (16:38)
--- NOTE | 2018-04-11 19:36 | PN ---
Teaching Attending Note Name of Resident: Clive Jameson ATTENDING PHYSICIAN STATEMENT I saw and evaluated the patient. I reviewed the resident's note and discussed the case with the resident. I agree with the resident's findings and plan as documented. SUBJECTIVE: Feeling a bit better. More comfortable off O2. No fever/chills OBJECTIVE: Afebrile/Hemodynamically Stable. Last Vital Signs Temp Pulse Resp BP Pulse Ox 98.5 F 62 20 143/69 94 L 04/11/18 18:00 04/11/18 18:00 04/11/18 18:00 04/11/18 18:00 04/11/18 09:00 HEENT - Atraumatic, Normocephalic Heart - S1, S2, RRR Lungs - bilateral wheeze resolved. Bibasal crackles. Abdomen - soft, non-tender. Bowel Sounds normal. Extremities - No calf swelling. No edema. Laboratory Results - last 24 hr 04/10/18 04/10/18 04/11/18 05:55 22:03 06:30 Sodium 136 Potassium 4.5 Chloride 103 Carbon Dioxide 28 Anion Gap 6 L BUN 17 Creatinine 0.8 Creat Clearance w eGFR > 60 POC Glucometer 304 Random Glucose 290 H Calcium 8.4 L [id number] 172 04/11/18 04/11/18 04/11/18 06:47 11:46 16:35 Sodium Potassium Chloride Carbon Dioxide Anion Gap BUN Creatinine Creat Clearance w eGFR POC Glucometer 306 429 311 Random Glucose Calcium [id number] Current Medications Generic Name Dose Route Start Last Admin Trade Name Freq PRN Reason Stop Dose Admin Acetaminophen 650 mg 04/08/18 15:48 04/09/18 06:02 Tylenol - PO 650 mg Q6H PRN Administration FEVER Albuterol Sulfate 1 amp 04/09/18 10:46 04/10/18 00:23 Ventolin 0.083% Nebulizer Soln - NEB 1 amp Q4H PRN Administration SHORT OF BREATH/WHEEZING Albuterol/Ipratropium 1 amp 04/09/18 12:00 04/11/18 16:36 Duoneb - NEB 1 amp RQID CATHLEEN Administration Budesonide/Formoterol Fumarate 2 puff 04/10/18 10:15 04/11/18 09:15 Symbicort 160/4.5mcg - IH 2 inh BID CATHLEEN Administration Cyclobenzaprine HCl 5 mg 04/09/18 22:00 04/10/18 22:04 Cyclobenzaprine Hcl PO 5 mg HS CATHLEEN Administration Duloxetine HCl 120 mg 04/09/18 22:00 04/10/18 22:04 Cymbalta - PO 120 mg HS CATHLEEN Administration Ezetimibe 5 mg 04/09/18 16:30 04/11/18 09:13 Zetia - PO 5 mg DAILY [facility] Administration Gemfibrozil 600 mg 04/09/18 16:30 04/11/18 16:38 Lopid - PO 600 mg DAILY@1630 C[facility] Administration Guaifenesin 10 ml 04/09/18 16:21 04/11/18 00:26 Robitussin Dm - PO 10 ml Q4H PRN Administration COUGH Heparin Sodium (Porcine) 5,000 unit 04/08/18 14:00 04/11/18 14:04 Heparin - SQ 5,000 unit TID [facility] Administration Azithromycin 500 mg in 250 mls @ 250 mls/hr 04/09/18 10:00 04/11/18 10:20 Zithromax 500mg Ivpb (Pre-Docked) IVPB 250 mls/hr DAILY [facility] Administration Sodium Chloride 1,000 mls @ 75 mls/hr 04/08/18 11:00 04/11/18 07:00 Normal Saline - IV 75 mls/hr ASDIR CATHLEEN Administration Ceftriaxone Sodium 1 gm/ 50 mls @ 100 mls/hr 04/10/18 10:00 04/11/18 09:14 Dextrose IVPB 100 mls/hr DAILY [facility] Administration Protocol Insulin Aspart 1 vial 04/11/18 09:23 04/11/18 16:37 Novolog Vial Sliding Scale - SQ 10 units ACHS C[facility]EN Administration Protocol Levothyroxine Sodium 75 mcg 04/10/18 07:00 04/11/18 06:48 Synthroid - PO 75 mcg DAILY@0700 [facility] Administration Methylprednisolone Sodium Succinate 40 mg 04/10/18 10:15 04/11/18 14:10 Solu-Medrol - IVPUSH 40 mg Q6H-IV [facility] Administration Metoprolol Tartrate 12.5 mg 04/09/18 22:00 04/11/18 09:11 Lopressor - PO 12.5 mg BID [facility] Administration Neomycin/Polymyxin/Hydrocortisone 4 drop 04/08/18 12:43 04/11/18 17:22 Cortisporin Otic Solution - Not Given Q6HPO [facility] Nicotine 7 mg 04/08/18 12:30 04/11/18 09:18 Nicoderm Patch - TD 7 mg DAILY [facility] Administration Non-Formulary Medication 5 mg 04/09/18 22:00 Pilocarpine Hcl [Pilocarpine Hcl] PO TID [facility] Pregabalin 50 mg 04/09/18 22:00 04/11/18 09:12 Lyrica - PO 50 mg BID [facility] Administration Quetiapine Fumarate 300 mg 04/09/18 22:00 04/10/18 22:04 Seroquel Xr - PO 300 mg HS [facility] Administration Quetiapine Fumarate 50 mg 04/10/18 22:00 04/11/18 09:12 Seroquel - PO 50 mg BID [facility] Administration Timolol Maleate 1 drop 04/09/18 16:30 04/11/18 09:17 Timoptic 0.5% OU 1 drop DAILY [facility] Administration Trazodone HCl 100 mg 04/09/18 22:00 04/10/18 22:04 Desyrel - PO 100 mg HS [facility] Administration ASSESSMENT AND PLAN: 62 year old female smoker with HTN, DM 2, KAITLIN (not on CPAP), Hx of Diverticulitis, Hypothyroidism, Autoimmune Hepatitis, Depression, presented with 3 day history of cough and fever, admitted 04/08 with Sepsis secondary to bilateral pneumonia with possible new COPD diagnosis. 1. Sepsis secondary to bilateral Pneumonia. Continue Rocephin/Zithromax. Afebrile, Hemodynamically stable. 2. Possible COPD exacerbation given smoking history and bilateral wheeze - no prior hx of diagnosed COPD. Continue DuoNebs, Solumedrol For PFTs as outpatient. 3. Acute Hypoxic Resp Failure secondary to 1 and 2 - resolved Weaned off Supplemental O2. Continue DuoNebs, Solumedrol and Abx. Pulm following. 4. Acute Otitis Externa - Continue Neomycin/Polymyxin/Hydrocortisone drops. 5. DM 2 - uncontrolled especially due to steroid. A1C 8.1. Increase Sliding scale tier. 6. HTN - continue Lopressor. 7. KAITLIN (not currently on CPAP) - supplemental O2 for Sats < 90% 8. Hypothyroidism - Continue Synthroid. 9. Depression - Continue Cymbalta, Seroquel, Trazodone. 10. HLD - Continue Zetia, Lopid. 11. Hypophosphatemia - resolved s/p repletion. DVT Px - Heparin SQ
[2018-04-11] MEDS: DULoxetine HCL 30 MG CAPSULE.DR (FP) PO SCH (21:05)
[2018-04-11] MEDS: CYCLOBENZAPRINE HCL 5 MG TABLET PO SCH (21:05)
[2018-04-11] MEDS: traZODone HCL 50 MG TABLET (FP) PO SCH (21:06)
[2018-04-12] MEDS ORDERED: PT OWN MED DRAWER 7, Y5N ONE ×2 (00:05→09:30)
[2018-04-12] MEDS: SODIUM CHLORIDE 1,000 ML IV SCH (00:07)
[2018-04-12] MEDS: NEOMYCIN/POLYMYXN/HC OTIC SOLUTION 10 ML BOTTLE AS SCH ×5 (00:08→23:19)
[2018-04-12] MEDS: methylPREDNISolone NA SUCC 40 MG/1 ML VIAL IVPUSH SCH ×3 (02:06→18:28)
[2018-04-12] MEDS: LEVOTHYROXINE NA 75 MCG TABLET (FP) PO SCH (06:13)
[2018-04-12] MEDS: HEPARIN NA (PORCINE) 5,000 UNITS/ML 1ML VIAL SQ SCH ×3 (06:13→22:27)
[2018-04-12] MEDS: INSULIN SLIDING SCALE (NOVOLOG) 1 VIAL SQ SCH ×4 (06:15→22:28)
[2018-04-12] MEDS: ALBUTEROL SO4 2.5/IPRATROPIUM 0.5 INH SOL 3 ML VIAL.NEB. NEB SCH ×4 (07:45→20:30)
[2018-04-12] MEDS ORDERED: QUEtiapine FUMARATE 25 MG TABLET (FP) ONE ×2 (09:29→20:49)
[2018-04-12] MEDS ORDERED: cefTRIAXone SODIUM 1 GM VIAL ONE (09:31)
[2018-04-12] MEDS ORDERED: DEXTROSE 5%-WATER - 50 ML IVPB ONE (09:31)
[2018-04-12] MEDS: BUDESONIDE/FORMETEROL FUMARATE 160/4.5 mcg INHALER IH SCH ×2 (09:50→22:26)
[2018-04-12] MEDS: AZITHROMYCIN IVPB 500 MG/250 ML BAG IVPB SCH (09:50)
[2018-04-12] MEDS: CEFTRIAXONE 1 GM in DEXTROSE 5%-WATER - 50 ML IVPB SCH (09:51)
[2018-04-12] MEDS: EZETIMIBE 10 MG TABLET (FP) PO SCH (09:52)
[2018-04-12] MEDS: amLODIPine BESYLATE 5 MG TABLET (FP) PO SCH (09:53)
[2018-04-12] MEDS: METOPROLOL TARTRATE 25 MG TABLET (FP) PO SCH ×2 (09:53→22:27)
[2018-04-12] MEDS: PREGABALIN 50 MG CAPSULE PO SCH ×2 (09:55→22:29)
[2018-04-12] MEDS: guaiFENesin/D-METHORPHAN HB 10 ML UNIT-DOSE CUPS PO PRN ×2 (09:55→16:23)
[2018-04-12] MEDS: TIMOLOL 0.5% OPHTHALMIC SOL 5 ML BOTTLE OU SCH (09:55)
[2018-04-12] MEDS: QUEtiapine FUMARATE 50 MG TABLET PO SCH ×2 (09:55→22:27)
[2018-04-12] MEDS: NICOTINE 7 MG/24 HOURS TOPICAL PATCH TD SCH (09:58)
[2018-04-12] MEDS: INSULIN (LEVEMIR) 100 UNITS/ML UNITS SQ SCH ×2 (10:04→22:28)
[2018-04-12] MEDS: ACETAMINOPHEN 325 MG TABLET (FP) PO PRN (10:06)
--- NOTE | 2018-04-12 11:05 | PN ---
Progress Note (short form) - Note Progress Note: Breathing is slowly improving. Overall less shortness of breath, chest tightness, cough and wheezing. Intake & Output 04/09/18 04/10/18 04/11/18 04/12/18 23:59 23:59 23:59 23:59 Intake Total 2446 1930 2522 525 Balance 2446 1930 2522 525 Last Vital Signs Temp Pulse Resp BP Pulse Ox 98.4 F 57 L 20 181/84 H 96 04/12/18 06:00 04/12/18 06:00 04/12/18 06:00 04/12/18 06:00 04/11/18 21:00 Active Medications Acetaminophen (Tylenol -) 650 mg PO Q6H PRN PRN Reason: FEVER Last Admin: 04/12/18 10:06 Dose: 650 mg Albuterol Sulfate (Ventolin 0.083% Nebulizer Soln -) 1 amp NEB Q4H PRN PRN Reason: SHORT OF BREATH/WHEEZING Last Admin: 04/10/18 00:23 Dose: 1 amp Albuterol/Ipratropium (Duoneb -) 1 amp NEB RQID [facility] Last Admin: 04/12/18 07:45 Dose: 1 amp Amlodipine Besylate (Norvasc -) 5 mg PO DAILY [facility] Last Admin: 04/12/18 09:53 Dose: 5 mg Budesonide/Formoterol Fumarate (Symbicort 160/4.5mcg -) 2 puff IH BID [facility] Last Admin: 04/12/18 09:50 Dose: 2 inh Cyclobenzaprine HCl (Cyclobenzaprine Hcl) 5 mg PO HS [facility] Last Admin: 04/11/18 21:05 Dose: 5 mg Duloxetine HCl (Cymbalta -) 120 mg PO HS [facility] Last Admin: 04/11/18 21:05 Dose: 120 mg Ezetimibe (Zetia -) 5 mg PO DAILY [facility] Last Admin: 04/12/18 09:52 Dose: 5 mg Gemfibrozil (Lopid -) 600 mg PO DAILY@1630 [facility] Last Admin: 04/11/18 16:38 Dose: 600 mg Guaifenesin (Robitussin Dm -) 10 ml PO Q4H PRN PRN Reason: COUGH Last Admin: 04/12/18 09:55 Dose: 10 ml Heparin Sodium (Porcine) (Heparin -) 5,000 unit SQ TID [facility] Last Admin: 04/12/18 06:13 Dose: 5,000 unit Azithromycin (Zithromax 500mg Ivpb (Pre-Docked)) 500 mg in 250 mls @ 250 mls/ hr IVPB DAILY [facility] Last Admin: 04/12/18 09:50 Dose: 250 mls/hr Ceftriaxone Sodium 1 gm/ (Dextrose) 50 mls @ 100 mls/hr IVPB DAILY [facility]; Protocol Last Admin: 04/12/18 09:51 Dose: 100 mls/hr Insulin Aspart (Novolog Vial Sliding Scale -) 1 vial SQ ACHS [facility]; Protocol Last Admin: 04/12/18 06:15 Dose: 10 units Insulin Detemir (Levemir Vial) 25 units SQ BID@0700,2200 [facility] Last Admin: 04/12/18 10:04 Dose: 25 units Levothyroxine Sodium (Synthroid -) 75 mcg PO DAILY@0700 [facility] Last Admin: 04/12/18 06:13 Dose: 75 mcg Methylprednisolone Sodium Succinate (Solu-Medrol -) 40 mg IVPUSH Q8H [facility] Metoprolol Tartrate (Lopressor -) 12.5 mg PO BID [facility] Last Admin: 04/12/18 09:53 Dose: 12.5 mg Neomycin/Polymyxin/Hydrocortisone (Cortisporin Otic Solution -) 4 drop Q6HPO [facility] Last Admin: 04/12/18 06:12 Dose: Not Given Nicotine (Nicoderm Patch -) 7 mg TD DAILY [facility] Last Admin: 04/12/18 09:58 Dose: 7 mg Non-Formulary Medication (Pilocarpine Hcl [Pilocarpine Hcl]) 5 mg PO TID [facility] Pregabalin (Lyrica -) 50 mg PO BID [facility] Last Admin: 04/12/18 09:55 Dose: 50 mg Quetiapine Fumarate (Seroquel Xr -) 300 mg PO HS [facility] Last Admin: 04/11/18 21:07 Dose: 300 mg Quetiapine Fumarate (Seroquel -) 50 mg PO BID [facility] Last Admin: 04/12/18 09:55 Dose: 50 mg Timolol Maleate (Timoptic 0.5%) 1 drop OU DAILY [facility] Last Admin: 04/12/18 09:55 Dose: 1 drop Trazodone HCl (Desyrel -) 100 mg PO HS [facility] Last Admin: 04/11/18 21:06 Dose: 100 mg Gen: NAD, cough Heart: RRR Lung: bilateral rhonchi, wheezes Abd: soft, nontender Ext: no edema Problem List - Problems (1) PNA (pneumonia) Code(s): J18.9 - PNEUMONIA, UNSPECIFIED ORGANISM Qualifiers: Pneumonia type: due to unspecified organism Laterality: bilateral Lung location: unspecified part of lung Qualified Code(s): J18.9 - Pneumonia, unspecified organism (2) COPD with acute exacerbation Code(s): J44.1 - CHRONIC OBSTRUCTIVE PULMONARY DISEASE W (ACUTE) EXACERBATION (3) HTN (hypertension) Code(s): I10 - ESSENTIAL (PRIMARY) HYPERTENSION (4) Diabetes Code(s): E11.9 - TYPE 2 DIABETES MELLITUS WITHOUT COMPLICATIONS (5) Hypothyroidism Code(s): E03.9 - HYPOTHYROIDISM, UNSPECIFIED IMP: Pneumonia Acute COPD Exacerbation HTN DM Hypothyroidism KAITLIN Smoker PLAN: - continue antibiotics - Wean Medrol - inhaled bronchodilators standing and PRN - O2 to keep SpO2 >90% - cough suppressants - smoking cessation - outpt PFTs and f/u - DVT prophylaxis Dr Marrufo
[2018-04-12 13:44] LABS: ANION GAP 9 MMOL/L (8-16); BLOOD UREA NITROGEN 23 mg/dL (7-18); CALCIUM 8.9 mg/dL (8.5-10.1); CHLORIDE 94 mmol/L (98-107); CO2 28 mmol/L (21-32); POTASSIUM 4.6 mmol/L (3.5-5.1); SODIUM 131 mmol/L (136-145)
[2018-04-12 13:54] LABS: GLUCOSE,RANDOM 480 mg/dL (74-106)
[2018-04-12] MEDS ORDERED: SODIUM CHLORIDE 1,000 ML IV SCH (15:00)
--- NOTE | 2018-04-12 15:02 | PN ---
Physical Exam: SUBJECTIVE: Patient seen and examined. Off oxygen, breathing is improved. No more ear ache, no fevers. OBJECTIVE: Vital Signs Period Temp Pulse Resp BP Sys/[place] Pulse Ox Last 24 Hr 97.6 F-98.5 F 57-92 18-20 104-181/64-84 96 Vital Signs Temp 97.6 F 04/12/18 10:00 Pulse 92 H 04/12/18 10:00 Resp 18 04/12/18 10:00 BP 104/64 04/12/18 10:00 Pulse Ox 96 04/11/18 21:00 Intake & Output 04/11/18 04/12/18 04/12/18 23:59 11:59 23:59 Intake Total 1372 525 Balance 1372 525 Intake: IV 1072 525 Normal Saline - 1,000 ml 1072 525 @ 75 mls/hr IV ASDIR CATHLEEN Rx#:[id number] IVPB 300 Other: Voiding Method Toilet Toilet GENERAL: The patient is awake, alert, and fully oriented, in no acute distress. LUNGS: Breath sounds equal, clear to auscultation bilaterally, no wheezes, few basal crackles on R HEART: Regular rate and rhythm, S1, S2 ABDOMEN: Soft, nontender, nondistended, normoactive bowel sounds, no guarding EXTREMITIES: 2+ pulses, warm, well-perfused, no edema. NEUROLOGICAL: Cranial nerves II through XII grossly intact. Normal speech, gait not observed. CBC, BMP 04/10/18 05:55 04/12/18 13:05 Laboratory Results - last 24 hr 04/11/18 04/11/18 04/12/18 16:35 21:36 06:14 Sodium Potassium Chloride Carbon Dioxide Anion Gap BUN Creatinine Creat Clearance w eGFR POC Glucometer 311 349 328 Random Glucose Calcium 04/12/18 13:05 Sodium 131 L Potassium 4.6 Chloride 94 L Carbon Dioxide 28 Anion Gap 9 BUN 23 H Creatinine 1.0 Creat Clearance w eGFR 56.37 POC Glucometer Random Glucose 480 H* Calcium 8.9 Active Medications Acetaminophen (Tylenol -) 650 mg PO Q6H PRN PRN Reason: FEVER Last Admin: 04/12/18 10:06 Dose: 650 mg Albuterol Sulfate (Ventolin 0.083% Nebulizer Soln -) 1 amp NEB Q4H PRN PRN Reason: SHORT OF BREATH/WHEEZING Last Admin: 04/10/18 00:23 Dose: 1 amp Albuterol/Ipratropium (Duoneb -) 1 amp NEB RQID [facility] Last Admin: 04/12/18 11:25 Dose: Not Given Amlodipine Besylate (Norvasc -) 5 mg PO DAILY [facility] Last Admin: 04/12/18 09:53 Dose: 5 mg Budesonide/Formoterol Fumarate (Symbicort 160/4.5mcg -) 2 puff IH BID [facility] Last Admin: 04/12/18 09:50 Dose: 2 inh Cyclobenzaprine HCl (Cyclobenzaprine Hcl) 5 mg PO HS [facility] Last Admin: 04/11/18 21:05 Dose: 5 mg Duloxetine HCl (Cymbalta -) 120 mg PO HS [facility] Last Admin: 04/11/18 21:05 Dose: 120 mg Ezetimibe (Zetia -) 5 mg PO DAILY [facility] Last Admin: 04/12/18 09:52 Dose: 5 mg Gemfibrozil (Lopid -) 600 mg PO DAILY@1630 [facility] Last Admin: 04/11/18 16:38 Dose: 600 mg Guaifenesin (Robitussin Dm -) 10 ml PO Q4H PRN PRN Reason: COUGH Last Admin: 04/12/18 09:55 Dose: 10 ml Heparin Sodium (Porcine) (Heparin -) 5,000 unit SQ TID [facility] Last Admin: 04/12/18 14:14 Dose: 5,000 unit Azithromycin (Zithromax 500mg Ivpb (Pre-Docked)) 500 mg in 250 mls @ 250 mls/ hr IVPB DAILY [facility] Last Admin: 04/12/18 09:50 Dose: 250 mls/hr Ceftriaxone Sodium 1 gm/ (Dextrose) 50 mls @ 100 mls/hr IVPB DAILY [facility]; Protocol Last Admin: 04/12/18 09:51 Dose: 100 mls/hr Sodium Chloride (Normal Saline -) 1,000 mls @ 100 mls/hr IV ASDIR [facility] Insulin Aspart (Novolog Vial Sliding Scale -) 1 vial SQ ACHS [facility]; Protocol Last Admin: 04/12/18 11:45 Dose: 13 units Insulin Detemir (Levemir Vial) 25 units SQ BID@0700,2200 [facility] Last Admin: 04/12/18 10:04 Dose: 25 units Levothyroxine Sodium (Synthroid -) 75 mcg PO DAILY@0700 [facility] Last Admin: 04/12/18 06:13 Dose: 75 mcg Methylprednisolone Sodium Succinate (Solu-Medrol -) 40 mg IVPUSH Q8H-IV [facility] Metoprolol Tartrate (Lopressor -) 12.5 mg PO BID [facility] Last Admin: 04/12/18 09:53 Dose: 12.5 mg Neomycin/Polymyxin/Hydrocortisone (Cortisporin Otic Solution -) 4 drop Q6HPO [facility] Last Admin: 04/12/18 14:10 Dose: Not Given Nicotine (Nicoderm Patch -) 7 mg TD DAILY [facility] Last Admin: 04/12/18 09:58 Dose: 7 mg Non-Formulary Medication (Pilocarpine Hcl [Pilocarpine Hcl]) 5 mg PO TID [facility] Pregabalin (Lyrica -) 50 mg PO BID [facility] Last Admin: 04/12/18 09:55 Dose: 50 mg Quetiapine Fumarate (Seroquel Xr -) 300 mg PO [facility] Last Admin: 04/11/18 21:07 Dose: 300 mg Quetiapine Fumarate (Seroquel -) 50 mg PO BID [facility] Last Admin: 04/12/18 09:55 Dose: 50 mg Timolol Maleate (Timoptic 0.5%) 1 drop OU DAILY [facility] Last Admin: 04/12/18 09:55 Dose: 1 drop Trazodone HCl (Desyrel -) 100 mg PO [facility] Last Admin: 04/11/18 21:06 Dose: 100 mg Ambulatory Orders Cyclobenzaprine HCl 5 mg PO 04/08/18 Duloxetine HCl [Cymbalta] 120 mg PO 04/08/18 Esomeprazole Magnesium [Nexium 24Hr] 40 mg PO DAILY 04/08/18 Ezetimibe [Zetia] 5 mg PO DAILY 04/08/18 Fexofenadine HCl [Nazia Allergy] 30 mg PO DAILY 04/08/18 Gemfibrozil 600 mg PO DAILY 04/08/18 Insulin Glargine,Hum.rec.anlog [Lantus Solostar PEN (NF)] 25 units SQ Insulin Glargine,Hum.rec.anlog [Lantus Solostar PEN (NF)] 40 units SQ AM Insulin Lispro [Humalog Kwikpen] 10 unit SQ AM 04/08/18 Levothyroxine [Synthroid -] 75 mcg PO DAILY 04/08/18 Metoprolol Tartrate 12.5 mg PO BID 04/08/18 Pilocarpine HCl 5 mg PO TID 04/08/18 Prednisone 5 mg PO DAILY 04/08/18 Pregabalin [Lyrica] 50 mg PO BID 04/08/18 Quetiapine Fumarate "Xr" [Seroquel Xr -] 300 mg PO HS 04/08/18 Quetiapine Fumarate [Seroquel -] 50 mg PO BID 04/08/18 Timolol 0.5% [Timoptic 0.5%] 1 drop OU DAILY 04/08/18 metFORMIN HCL [Metformin HCl] 1,000 mg PO AM 04/08/18 metFORMIN HCL [Metformin HCl] 500 mg PO HS 04/08/18 traZODone HCL [Trazodone HCl] 100 mg PO HS 04/08/18 Microbiology 04/08/18 05:50 Blood - Peripheral Venous Blood Culture - Preliminary NO GROWTH OBTAINED AFTER 96 HOURS, INCUBATION TO CONTINUE FOR 1 DAYS. 04/08/18 05:50 Blood - Peripheral Venous Blood Culture - Preliminary NO GROWTH OBTAINED AFTER 96 HOURS, INCUBATION TO CONTINUE FOR 1 DAYS. 04/08/18 08:11 Urine - Urine Clean Catch Urine Culture - Final 04/08/18 08:24 Throat Throat Culture - Final NO BETA HEMOLYTIC STREPTOCOCCI ISOLATED ASSESSMENT/PLAN: 62 yo F with PMHx of DM, HTN, KAITLIN (not currently on CPAP), thyroid disease, diverticulitis, disc prolapse, immune hepatitis, current smoker, admitted with worsening non productive cough and fever x3 days. IDDM with hyperglycemia -Pt is on iv steroids, uses high dose basal insulin at home - BGMs -Pt started on basal levemir insulin 25U bid -Insulin sliding scale -Draw venous blood again in 2hrs, Glu 480, Sodium-131 (corrected-137) -Advise outpatient follow up for further glycemic control Sepsis secondary to Community Acquired Pneumonia -Azithromycin and Rocephin -Weaned off of O2 COPD -Newly diagnosed this visit, chronic smoker -Pulm consult appreciated -Agree with short course of SoluMedrol and Abx -SoluMedrol to 40 mg Q8H, can could be changed to PO and dcd maybe tomorrow D/W Pulm -PFTs as outpatient -Pt mentions autoimmune hepatitis, a1AT normal Hypothyroid -Synthroid 75 mcg PO AM HTN -Lopressor 12.5 mg PO BID HLD -Ezetimibe Psych disorder -Cont quetiapine/trazodone/duloxetine Otitis media -Otic drops -Cont antibiotic FEN -Fluids: stop NS -Monitor Electrolytes -Nutrition: Diabetic Na controlled diet DVT Prophylaxis -Heparin 5000 units SQ TID Dispo: For likely DC tomorrow if glucose controlled on PO steroids Visit type - Emergency Visit Emergency Visit: Yes ED Registration Date: 04/08/18 Care time: The patient presented to the Emergency Department on the above date and was hospitalized for further evaluation of their emergent condition. - New Patient This patient is new to me today: No - Critical Care Critical Care patient: No - Discharge Referral Referred to [facility] Med P.C.: No
[2018-04-12] MEDS: GEMFIBROZIL 600 MG TABLET (FP) PO SCH (16:23)
--- NOTE | 2018-04-12 17:34 | PN ---
Teaching Attending Note Name of Resident: Suzanne Molina ATTENDING PHYSICIAN STATEMENT I saw and evaluated the patient. I reviewed the resident's note and discussed the case with the resident. I agree with the resident's findings and plan as documented. SUBJECTIVE: Feeling much better, less dyspneic. Cough/wheeze improving. No fever /chills OBJECTIVE: Afebrile, hemodynamically Stable. SpO2 96% RA. Last Vital Signs Temp Pulse Resp BP Pulse Ox 97.8 F 82 18 119/76 96 04/12/18 15:06 04/12/18 15:06 04/12/18 15:06 04/12/18 15:06 04/11/18 21:00 HEENT - Atraumatic, Normocephalic Heart - S1, S2, RRR Lungs - bilateral wheeze resolved. Few bibasal crackles. Abdomen - soft, non-tender. Bowel Sounds normal. Extremities - No calf swelling. No edema. Laboratory Results - last 24 hr 04/11/18 04/12/18 04/12/18 21:36 06:14 13:05 Sodium 131 L Potassium 4.6 Chloride 94 L Carbon Dioxide 28 Anion Gap 9 BUN 23 H Creatinine 1.0 Creat Clearance w eGFR 56.37 POC Glucometer 349 328 Random Glucose 480 H* Calcium 8.9 04/12/18 16:24 Sodium Potassium Chloride Carbon Dioxide Anion Gap BUN Creatinine Creat Clearance w eGFR POC Glucometer 416 Random Glucose Calcium Current Medications Generic Name Dose Route Start Last Admin Trade Name Freq PRN Reason Stop Dose Admin Acetaminophen 650 mg 04/08/18 15:48 04/12/18 10:06 Tylenol - PO 650 mg Q6H PRN Administration FEVER Albuterol Sulfate 1 amp 04/09/18 10:46 04/10/18 00:23 Ventolin 0.083% Nebulizer Soln - NEB 1 amp Q4H PRN Administration SHORT OF BREATH/WHEEZING Albuterol/Ipratropium 1 amp 04/09/18 12:00 04/12/18 15:45 Duoneb - NEB 1 amp RQID [facility] Administration Amlodipine Besylate 5 mg 04/12/18 10:00 04/12/18 09:53 Norvasc - PO 5 mg DAILY [facility] Administration Budesonide/Formoterol Fumarate 2 puff 04/10/18 10:15 04/12/18 09:50 Symbicort 160/4.5mcg - IH 2 inh BID [facility] Administration Cyclobenzaprine HCl 5 mg 04/09/18 22:00 04/11/18 21:05 Cyclobenzaprine Hcl PO 5 mg HS [facility] Administration Duloxetine HCl 120 mg 04/09/18 22:00 04/11/18 21:05 Cymbalta - PO 120 mg HS [facility] Administration Ezetimibe 5 mg 04/09/18 16:30 04/12/18 09:52 Zetia - PO 5 mg DAILY [facility] Administration Gemfibrozil 600 mg 04/09/18 16:30 04/12/18 16:23 Lopid - PO 600 mg DAILY@1630 [facility] Administration Guaifenesin 10 ml 04/09/18 16:21 04/12/18 16:23 Robitussin Dm - PO 10 ml Q4H PRN Administration COUGH Heparin Sodium (Porcine) 5,000 unit 04/08/18 14:00 04/12/18 14:14 Heparin - SQ 5,000 unit TID [facility] Administration Azithromycin 500 mg in 250 mls @ 250 mls/hr 04/09/18 10:00 04/12/18 09:50 Zithromax 500mg Ivpb (Pre-Docked) IVPB 250 mls/hr DAILY [facility] Administration Ceftriaxone Sodium 1 gm/ 50 mls @ 100 mls/hr 04/10/18 10:00 04/12/18 09:51 Dextrose IVPB 100 mls/hr DAILY [facility] Administration Protocol Insulin Aspart 1 vial 04/11/18 09:23 04/12/18 16:25 Novolog Vial Sliding Scale - SQ 13 units ACHS [facility] Administration Protocol Insulin Detemir 25 units 04/12/18 10:00 04/12/18 10:04 Levemir Vial SQ 25 units BID@0700,2200 [facility] Administration Levothyroxine Sodium 75 mcg 04/10/18 07:00 04/12/18 06:13 Synthroid - PO 75 mcg DAILY@0700 [facility] Administration Methylprednisolone Sodium Succinate 40 mg 04/12/18 18:00 Solu-Medrol - IVPUSH Q8H-IV [facility] Metoprolol Tartrate 12.5 mg 04/09/18 22:00 04/12/18 09:53 Lopressor - PO 12.5 mg BID [facility] Administration Neomycin/Polymyxin/Hydrocortisone 4 drop 04/08/18 12:43 04/12/18 14:10 Cortisporin Otic Solution - Not Given Q6HPO [facility] Nicotine 7 mg 04/08/18 12:30 04/12/18 09:58 Nicoderm Patch - TD 7 mg DAILY [facility] Administration Non-Formulary Medication 5 mg 04/09/18 22:00 Pilocarpine Hcl [Pilocarpine Hcl] PO TID [facility] Pregabalin 50 mg 04/09/18 22:00 04/12/18 09:55 Lyrica - PO 50 mg BID [facility] Administration Quetiapine Fumarate 300 mg 04/09/18 22:00 04/11/18 21:07 Seroquel Xr - PO 300 mg HS [facility] Administration Quetiapine Fumarate 50 mg 04/10/18 22:00 04/12/18 09:55 Seroquel - PO 50 mg BID [facility] Administration Timolol Maleate 1 drop 04/09/18 16:30 04/12/18 09:55 Timoptic 0.5% OU 1 drop DAILY [facility] Administration Trazodone HCl 100 mg 04/09/18 22:00 04/11/18 21:06 Desyrel - PO 100 mg HS [facility] Administration ASSESSMENT AND PLAN: 62 year old female smoker with HTN, DM 2, KAITLIN (not on CPAP), Hx of Diverticulitis, Hypothyroidism, Autoimmune Hepatitis, Depression, presented with 3 day history of cough and fever, admitted 04/08 with Sepsis secondary to bilateral pneumonia with possible new COPD diagnosis. 1. Sepsis secondary to bilateral Pneumonia. Continue Rocephin/Zithromax. Afebrile, Hemodynamically stable. 2. Possible new diagnosis COPD with exacerbation given smoking history and bilateral wheeze - no prior hx of diagnosed COPD. Continue DuoNebs, Solumedrol. Started on Symbicort. For PFTs as outpatient. Counselled regarding harmful effects of tobacco use. 3. Acute Hypoxic Resp Failure secondary to 1 and 2 - resolved Weaned off Supplemental O2. Continue DuoNebs and Abx. Solumedrol weaned to 40mg q8h Pulm following. 4. Acute Otitis Externa - Continue Neomycin/Polymyxin/Hydrocortisone drops. 5. DM 2 - uncontrolled especially due to steroid. A1C 8.1. Fingersticks > 400. Resumed on Levemir at dose of 25 units bid with sliding scale coverage. Will up- titrate Levemir depending on glucose readings. 6. HTN - Uncontrolled - likely sec to Steroid. Given 1 time dose Norvasc 5mg this AM. Continue Lopressor. 7. KAITLIN (not currently on CPAP) - supplemental O2 for Sats < 90%. Out-patient Pulm referral for sleep study and CPAP. 8. Hypothyroidism - Continue Synthroid. 9. Depression - Continue Cymbalta, Seroquel, Trazodone. 10. HLD - Continue Zetia, Lopid. 11. Hypophosphatemia - resolved s/p repletion. DVT Px - Heparin SQ
[2018-04-12 19:21] LABS: ANION GAP 8 MMOL/L (8-16); BLOOD UREA NITROGEN 26 mg/dL (7-18); CALCIUM 9.4 mg/dL (8.5-10.1); CHLORIDE 93 mmol/L (98-107); CO2 29 mmol/L (21-32); CREATININE 0.9 mg/dL (0.55-1.3); POTASSIUM 4.7 mmol/L (3.5-5.1); SODIUM 131 mmol/L (136-145)
[2018-04-12 19:23] LABS: GLUCOSE,RANDOM 357 mg/dL (74-106)
[2018-04-12] MEDS: DULoxetine HCL 30 MG CAPSULE.DR (FP) PO SCH (22:27)
[2018-04-12] MEDS: CYCLOBENZAPRINE HCL 5 MG TABLET PO SCH (22:27)
[2018-04-12] MEDS: traZODone HCL 50 MG TABLET (FP) PO SCH (22:27)
[2018-04-13] MEDS: methylPREDNISolone NA SUCC 40 MG/1 ML VIAL IVPUSH SCH ×3 (01:22→17:59)
[2018-04-13] MEDS: NEOMYCIN/POLYMYXN/HC OTIC SOLUTION 10 ML BOTTLE AS SCH ×3 (06:03→18:01)
[2018-04-13] MEDS: HEPARIN NA (PORCINE) 5,000 UNITS/ML 1ML VIAL SQ SCH ×3 (06:05→22:13)
[2018-04-13] MEDS: INSULIN SLIDING SCALE (NOVOLOG) 1 VIAL SQ SCH ×4 (06:06→23:24)
[2018-04-13] MEDS: INSULIN (LEVEMIR) 100 UNITS/ML UNITS SQ SCH (06:06)
[2018-04-13] MEDS: LEVOTHYROXINE NA 75 MCG TABLET (FP) PO SCH (06:06)
[2018-04-13] MEDS: ALBUTEROL SO4 2.5/IPRATROPIUM 0.5 INH SOL 3 ML VIAL.NEB. NEB SCH ×4 (07:55→20:00)
[2018-04-13] MEDS ORDERED: QUEtiapine FUMARATE 25 MG TABLET (FP) ONE ×2 (10:39→21:53)
[2018-04-13] MEDS ORDERED: cefTRIAXone SODIUM 1 GM VIAL ONE (10:40)
[2018-04-13] MEDS ORDERED: DEXTROSE 5%-WATER - 50 ML IVPB ONE (10:40)
[2018-04-13] MEDS: METOPROLOL TARTRATE 25 MG TABLET (FP) PO SCH ×2 (10:41→22:13)
[2018-04-13] MEDS: BUDESONIDE/FORMETEROL FUMARATE 160/4.5 mcg INHALER IH SCH ×2 (10:42→22:14)
[2018-04-13] MEDS: QUEtiapine FUMARATE 50 MG TABLET PO SCH ×2 (10:42→22:13)
[2018-04-13] MEDS: PREGABALIN 50 MG CAPSULE PO SCH ×2 (10:42→22:13)
[2018-04-13] MEDS: EZETIMIBE 10 MG TABLET (FP) PO SCH (10:42)
[2018-04-13] MEDS: TIMOLOL 0.5% OPHTHALMIC SOL 5 ML BOTTLE OU SCH (10:43)
[2018-04-13] MEDS: CEFTRIAXONE 1 GM in DEXTROSE 5%-WATER - 50 ML IVPB SCH (10:44)
[2018-04-13] MEDS: AZITHROMYCIN IVPB 500 MG/250 ML BAG IVPB SCH (10:46)
[2018-04-13] MEDS: NICOTINE 7 MG/24 HOURS TOPICAL PATCH TD SCH (10:56)
[2018-04-13] MEDS: ACETAMINOPHEN 325 MG TABLET (FP) PO PRN (10:57)
[2018-04-13] MEDS: guaiFENesin/D-METHORPHAN HB 10 ML UNIT-DOSE CUPS PO PRN ×2 (10:58→17:59)
--- NOTE | 2018-04-13 11:25 | PN ---
Progress Note (short form) - Note Progress Note: Breathing is slowly improving. Some dizziness when changing position. Overall less shortness of breath, chest tightness, cough and wheezing. Intake & Output 04/10/18 04/11/18 04/12/18 04/13/18 23:59 23:59 23:59 23:59 Intake Total 19292 1585 Balance 19292 1585 Last Vital Signs Temp Pulse Resp BP Pulse Ox 97.4 F L 70 20 108/73 95 04/13/18 06:00 04/13/18 06:00 04/13/18 06:00 04/13/18 06:00 04/12/18 22:40 Active Medications Acetaminophen (Tylenol -) 650 mg PO Q6H PRN PRN Reason: FEVER Last Admin: 04/13/18 10:57 Dose: 650 mg Albuterol Sulfate (Ventolin 0.083% Nebulizer Soln -) 1 amp NEB Q4H PRN PRN Reason: SHORT OF BREATH/WHEEZING Last Admin: 04/10/18 00:23 Dose: 1 amp Albuterol/Ipratropium (Duoneb -) 1 amp NEB RQID [facility] Last Admin: 04/13/18 07:55 Dose: 1 amp Amlodipine Besylate (Norvasc -) 5 mg PO DAILY [facility] Last Admin: 04/12/18 09:53 Dose: 5 mg Budesonide/Formoterol Fumarate (Symbicort 160/4.5mcg -) 2 puff IH BID [facility] Last Admin: 04/13/18 10:42 Dose: 2 inh Cyclobenzaprine HCl (Cyclobenzaprine Hcl) 5 mg PO HS [facility] Last Admin: 04/12/18 22:27 Dose: 5 mg Duloxetine HCl (Cymbalta -) 120 mg PO HS [facility] Last Admin: 04/12/18 22:27 Dose: 120 mg Ezetimibe (Zetia -) 5 mg PO DAILY [facility] Last Admin: 04/13/18 10:42 Dose: 5 mg Gemfibrozil (Lopid -) 600 mg PO DAILY@1630 [facility] Last Admin: 04/12/18 16:23 Dose: 600 mg Guaifenesin (Robitussin Dm -) 10 ml PO Q4H PRN PRN Reason: COUGH Last Admin: 04/13/18 10:58 Dose: 10 ml Heparin Sodium (Porcine) (Heparin -) 5,000 unit SQ TID [facility] Last Admin: 04/13/18 06:05 Dose: 5,000 unit Azithromycin (Zithromax 500mg Ivpb (Pre-Docked)) 500 mg in 250 mls @ 250 mls/ hr IVPB DAILY [facility] Last Admin: 04/13/18 10:46 Dose: 250 mls/hr Ceftriaxone Sodium 1 gm/ (Dextrose) 50 mls @ 100 mls/hr IVPB DAILY [facility]; Protocol Last Admin: 04/13/18 10:44 Dose: 100 mls/hr Insulin Aspart (Novolog Vial Sliding Scale -) 1 vial SQ ACHS [facility]; Protocol Last Admin: 04/13/18 06:06 Dose: 12 units Insulin Detemir (Levemir Vial) 25 units SQ BID@0700,2200 [facility] Last Admin: 04/13/18 06:06 Dose: 25 units Levothyroxine Sodium (Synthroid -) 75 mcg PO DAILY@0700 [facility] Last Admin: 04/13/18 06:06 Dose: 75 mcg Methylprednisolone Sodium Succinate (Solu-Medrol -) 40 mg IVPUSH Q8H-IV [facility] Last Admin: 04/13/18 10:42 Dose: 40 mg Metoprolol Tartrate (Lopressor -) 12.5 mg PO BID [facility] Last Admin: 04/13/18 10:41 Dose: 12.5 mg Neomycin/Polymyxin/Hydrocortisone (Cortisporin Otic Solution -) 4 drop Q6HPO [facility] Last Admin: 04/13/18 06:03 Dose: Not Given Nicotine (Nicoderm Patch -) 7 mg TD DAILY [facility] Last Admin: 04/13/18 10:56 Dose: 7 mg Non-Formulary Medication (Pilocarpine Hcl [Pilocarpine Hcl]) 5 mg PO TID [facility] Pregabalin (Lyrica -) 50 mg PO BID [facility] Last Admin: 04/13/18 10:42 Dose: 50 mg Quetiapine Fumarate (Seroquel Xr -) 300 mg PO HS [facility] Last Admin: 04/12/18 22:27 Dose: 300 mg Quetiapine Fumarate (Seroquel -) 50 mg PO BID [facility] Last Admin: 04/13/18 10:42 Dose: 50 mg Timolol Maleate (Timoptic 0.5%) 1 drop OU DAILY [facility] Last Admin: 04/13/18 10:43 Dose: 1 drop Trazodone HCl (Desyrel -) 100 mg PO HS [facility] Last Admin: 04/12/18 22:27 Dose: 100 mg Gen: NAD, cough Heart: RRR Lung: bilateral rhonchi, wheezes Abd: soft, nontender Ext: no edema Laboratory Results - last 24 hr 04/12/18 04/12/18 04/12/18 13:05 16:24 17:46 Sodium 131 L 131 L Potassium 4.6 4.7 Chloride 94 L 93 L Carbon Dioxide 28 29 Anion Gap 9 8 BUN 23 H 26 H Creatinine 1.0 0.9 Creat Clearance w eGFR 56.37 > 60 POC Glucometer 416 Random Glucose 480 H* 357 H* Calcium 8.9 9.4 04/12/18 04/13/18 22:23 06:04 Sodium Potassium Chloride Carbon Dioxide Anion Gap BUN Creatinine Creat Clearance w eGFR POC Glucometer 398 316 Random Glucose Calcium Problem List - Problems (1) PNA (pneumonia) Code(s): J18.9 - PNEUMONIA, UNSPECIFIED ORGANISM Qualifiers: Pneumonia type: due to unspecified organism Laterality: bilateral Lung location: unspecified part of lung Qualified Code(s): J18.9 - Pneumonia, unspecified organism (2) COPD with acute exacerbation Code(s): J44.1 - CHRONIC OBSTRUCTIVE PULMONARY DISEASE W (ACUTE) EXACERBATION (3) HTN (hypertension) Code(s): I10 - ESSENTIAL (PRIMARY) HYPERTENSION (4) Diabetes Code(s): E11.9 - TYPE 2 DIABETES MELLITUS WITHOUT COMPLICATIONS (5) Hypothyroidism Code(s): E03.9 - HYPOTHYROIDISM, UNSPECIFIED IMP: Pneumonia Acute COPD Exacerbation HTN DM Hypothyroidism KAITLIN Smoker Overall Syndrome PLAN: - continue antibiotics - Can leave Medrol at current dose and likely change in Prednisone in the AM - inhaled bronchodilators standing and PRN - O2 to keep SpO2 >90% - cough suppressants - smoking cessation - outpt PFTs and f/u - Will need formal OSAS re-evaluation and CPAP titration - DVT prophylaxis - Ambulate and check post ambulation saturation Dr Marrufo
[2018-04-13] MEDS ORDERED: INSULIN (LEVEMIR) 100 UNITS/ML UNITS SQ STA (12:22)
[2018-04-13 12:32] LABS: ALBUMIN 3.3 g/dl (3.4-5.0); ALK PHOS 66 U/L (45-117); ANION GAP 8 MMOL/L (8-16); BILIRUBIN,TOTAL 0.3 mg/dL (0.2-1); BLOOD UREA NITROGEN 24 mg/dL (7-18); CHLORIDE 96 mmol/L (98-107); CO2 28 mmol/L (21-32); PHOSPHOROUS 4.2 mg/dL (2.5-4.9); POTASSIUM 4.6 mmol/L (3.5-5.1); SGOT/AST 33 U/L (15-37); SGPT/ALT 39 U/L (13-61); SODIUM 133 mmol/L (136-145); TOT PROT 7.2 g/dl (6.4-8.2)
[2018-04-13] MEDS: amLODIPine BESYLATE 5 MG TABLET (FP) PO SCH (13:11)
[2018-04-13 13:18] LABS: GLUCOSE,RANDOM 320 mg/dL (74-106)
[2018-04-13 13:26] LABS: BASO % 0.4 % (0-2.0); EOS % 0.1 % (0-4.5); HEMATOCRIT 39.5 % (32.4-45.2); HEMOGLOBIN 12.7 GM/dL (10.7-15.3); LYMPH % 15.5 % (8-40); MCH 30.3 pg (25.7-33.7); MCHC 32.2 g/dl (32.0-36.0); MEAN CELL VOLUME 94.1 fl (80-96); MEAN PLT VOLUME 8.6 fl (7.5-11.1); MONO % 6.2 % (3.8-10.2); NEUT % 77.8 % (42.8-82.8); PLATELET COUNT 364 K/MM3 (134-434); RDW 15.2 % (11.6-15.6); WHITE BLOOD COUNT 6.8 K/mm3 (4.0-10.0)
--- NOTE | 2018-04-13 17:52 | PN ---
Progress Note (short form) - Note Progress Note: SUBJECTIVE: Feeling much better. SOB/Cough/wheeze improving. No fever/chills OBJECTIVE: Afebrile, hemodynamically Stable. SpO2 95% RA. Last Vital Signs Temp Pulse Resp BP Pulse Ox 98.6 F 84 20 131/72 95 04/13/18 10:00 04/13/18 10:00 04/13/18 10:00 04/13/18 10:00 04/13/18 09:00 HEENT - Atraumatic, Normocephalic Heart - S1, S2, RRR Lungs - bilateral wheeze resolved. Good air entry bilaterally. Abdomen - soft, non-tender. Bowel Sounds normal. Extremities - No calf swelling. No edema. Laboratory Results - last 24 hr 04/12/18 04/12/18 04/13/18 17:46 22:23 06:00 WBC 6.8 RBC 4.20 Hgb 12.7 Hct 39.5 MCV 94.1 MCH 30.3 MCHC 32.2 RDW 15.2 Plt Count 364 MPV 8.6 Absolute Neuts (auto) 5.3 Neutrophils % 77.8 Lymphocytes % 15.5 D Monocytes % 6.2 Eosinophils % 0.1 D Basophils % 0.4 Nucleated RBC % 0 Sodium 131 L Potassium 4.7 Chloride 93 L Carbon Dioxide 29 Anion Gap 8 BUN 26 H Creatinine 0.9 Creat Clearance w eGFR > 60 POC Glucometer 398 Random Glucose 357 H* Calcium 9.4 Phosphorus Magnesium Total Bilirubin AST ALT Alkaline Phosphatase Total Protein Albumin 04/13/18 04/13/18 04/13/18 06:00 06:04 12:14 WBC RBC Hgb Hct MCV MCH MCHC RDW Plt Count MPV Absolute Neuts (auto) Neutrophils % Lymphocytes % Monocytes % Eosinophils % Basophils % Nucleated RBC % Sodium 133 L Potassium 4.6 Chloride 96 L Carbon Dioxide 28 Anion Gap 8 BUN 24 H Creatinine 1.0 Creat Clearance w eGFR 56.37 POC Glucometer 316 431 Random Glucose 320 H* Calcium 9.0 Phosphorus 4.2 Magnesium 2.0 Total Bilirubin 0.3 AST 33 ALT 39 Alkaline Phosphatase 66 Total Protein 7.2 Albumin 3.3 L 04/13/18 16:33 WBC RBC Hgb Hct MCV MCH MCHC RDW Plt Count MPV Absolute Neuts (auto) Neutrophils % Lymphocytes % Monocytes % Eosinophils % Basophils % Nucleated RBC % Sodium Potassium Chloride Carbon Dioxide Anion Gap BUN Creatinine Creat Clearance w eGFR POC Glucometer 385 Random Glucose Calcium Phosphorus Magnesium Total Bilirubin AST ALT Alkaline Phosphatase Total Protein Albumin Current Medications Generic Name Dose Route Start Last Admin Trade Name Freq PRN Reason Stop Dose Admin Acetaminophen 650 mg 04/08/18 15:48 04/13/18 10:57 Tylenol - PO 650 mg Q6H PRN Administration FEVER Albuterol Sulfate 1 amp 04/09/18 10:46 04/10/18 00:23 Ventolin 0.083% Nebulizer Soln - NEB 1 amp Q4H PRN Administration SHORT OF BREATH/WHEEZING Albuterol/Ipratropium 1 amp 04/09/18 12:00 04/13/18 16:03 Duoneb - NEB 1 amp RQID [facility] Administration Amlodipine Besylate 5 mg 04/12/18 10:00 04/13/18 13:11 Norvasc - PO 5 mg DAILY [facility] Administration Budesonide/Formoterol Fumarate 2 puff 04/10/18 10:15 04/13/18 10:42 Symbicort 160/4.5mcg - IH 2 inh BID [facility] Administration Cyclobenzaprine HCl 5 mg 04/09/18 22:00 04/12/18 22:27 Cyclobenzaprine Hcl PO 5 mg HS [facility] Administration Duloxetine HCl 120 mg 04/09/18 22:00 04/12/18 22:27 Cymbalta - PO 120 mg HS [facility] Administration Ezetimibe 5 mg 04/09/18 16:30 04/13/18 10:42 Zetia - PO 5 mg DAILY [facility] Administration Gemfibrozil 600 mg 04/09/18 16:30 04/12/18 16:23 Lopid - PO 600 mg DAILY@1630 [facility] Administration Guaifenesin 10 ml 04/09/18 16:21 04/13/18 10:58 Robitussin Dm - PO 10 ml Q4H PRN Administration COUGH Heparin Sodium (Porcine) 5,000 unit 04/08/18 14:00 04/13/18 13:11 Heparin - SQ 5,000 unit TID [facility] Administration Azithromycin 500 mg in 250 mls @ 250 mls/hr 04/09/18 10:00 04/13/18 10:46 Zithromax 500mg Ivpb (Pre-Docked) IVPB 250 mls/hr DAILY [facility] Administration Ceftriaxone Sodium 1 gm/ 50 mls @ 100 mls/hr 04/10/18 10:00 04/13/18 10:44 Dextrose IVPB 100 mls/hr DAILY [facility] Administration Protocol Insulin Aspart 1 vial 04/12/18 22:00 04/13/18 12:29 Novolog Vial Sliding Scale - SQ 18 units ACHS [facility] Administration Protocol Insulin Detemir 40 units 04/14/18 07:00 Levemir Vial SQ 0700 [facility] Insulin Detemir 25 units 04/13/18 22:00 Levemir Vial SQ HS [facility] Levothyroxine Sodium 75 mcg 04/10/18 07:00 04/13/18 06:06 Synthroid - PO 75 mcg DAILY@0700 [facility] Administration Methylprednisolone Sodium Succinate 40 mg 04/12/18 18:00 04/13/18 10:42 Solu-Medrol - IVPUSH 40 mg Q8H-IV [facility] Administration Metoprolol Tartrate 12.5 mg 04/09/18 22:00 04/13/18 10:41 Lopressor - PO 12.5 mg BID [facility] Administration Neomycin/Polymyxin/Hydrocortisone 4 drop 04/08/18 12:43 04/13/18 12:30 Cortisporin Otic Solution - Not Given Q6HPO [facility] Nicotine 7 mg 04/08/18 12:30 04/13/18 10:56 Nicoderm Patch - TD 7 mg DAILY [facility] Administration Non-Formulary Medication 5 mg 04/09/18 22:00 Pilocarpine Hcl [Pilocarpine Hcl] PO TID [facility] Pregabalin 50 mg 04/09/18 22:00 04/13/18 10:42 Lyrica - PO 50 mg BID [facility] Administration Quetiapine Fumarate 300 mg 04/09/18 22:00 04/12/18 22:27 Seroquel Xr - PO 300 mg HS [facility] Administration Quetiapine Fumarate 50 mg 04/10/18 22:00 04/13/18 10:42 Seroquel - PO 50 mg BID [facility] Administration Timolol Maleate 1 drop 04/09/18 16:30 04/13/18 10:43 Timoptic 0.5% OU 1 drop DAILY [facility] Administration Trazodone HCl 100 mg 04/09/18 22:00 04/12/18 22:27 Desyrel - PO 100 mg HS [facility] Administration ASSESSMENT AND PLAN: 62 year old female smoker with HTN, DM 2, KAITLIN (not on CPAP), Hx of Diverticulitis, Hypothyroidism, Autoimmune Hepatitis, Depression, presented with 3 day history of cough and fever, admitted 04/08 with Sepsis secondary to bilateral pneumonia with possible new COPD diagnosis. 1. Sepsis secondary to bilateral Pneumonia. Continue Rocephin/Zithromax. Afebrile, Hemodynamically stable. 2. Possible new diagnosis COPD with exacerbation given smoking history and bilateral wheeze - no prior hx of diagnosed COPD. Continue DuoNebs, Solumedrol. Started on Symbicort. For PFTs as outpatient. 3. Acute Hypoxic Resp Failure secondary to 1 and 2 - resolved Weaned off Supplemental O2. SpO2 94% on RA. Continue DuoNebs and Abx. Solumedrol weaned to 40mg q8h. Pulm following. 4. Acute Otitis Externa - Continue Neomycin/Polymyxin/Hydrocortisone drops. 5. DM 2 - uncontrolled especially due to steroid. A1C 8.1. Fingersticks still > 400. Levemir dose increased to 40 units in AM and 25 units in PM with sliding scale coverage. Will up-titrate Levemir depending on glucose readings. 6. HTN - Continue Lopressor and started on Norvasc 5mg daily. 7. KAITLIN (not currently on CPAP) - supplemental O2 for Sats < 90%. Out-patient Pulm referral for sleep study and CPAP. 8. Hypothyroidism - Continue Synthroid. 9. Depression - Continue Cymbalta, Seroquel, Trazodone. 10. HLD - Continue Zetia, Lopid. 11. Hypophosphatemia - resolved s/p repletion. DVT Px - Heparin SQ Visit type - Emergency Visit Emergency Visit: Yes ED Registration Date: 04/08/18 Care time: The patient presented to the Emergency Department on the above date and was hospitalized for further evaluation of their emergent condition. - New Patient This patient is new to me today: No - Critical Care Critical Care patient: No - Discharge Referral Referred to [facility] Med [facility] No
[2018-04-13] MEDS: GEMFIBROZIL 600 MG TABLET (FP) PO SCH (17:59)
[2018-04-13 18:11] LABS: ANISOCYTOSIS 0; MACROCYTOSIS 0; PLATELET ESTIMATE NORMAL
[2018-04-13] MEDS ORDERED: PT OWN MED DRAWER 7, Y5N ONE (21:54)
[2018-04-13] MEDS ORDERED: INSULIN (LEVEMIR) 100 UNITS/ML UNITS SQ SCH (22:00)
[2018-04-13] MEDS: CYCLOBENZAPRINE HCL 5 MG TABLET PO SCH (22:12)
[2018-04-13] MEDS: traZODone HCL 50 MG TABLET (FP) PO SCH (22:13)
[2018-04-13] MEDS: DULoxetine HCL 30 MG CAPSULE.DR (FP) PO SCH (22:31)
[2018-04-14] MEDS: NEOMYCIN/POLYMYXN/HC OTIC SOLUTION 10 ML BOTTLE AS SCH ×2 (00:35→06:00)
[2018-04-14] MEDS: methylPREDNISolone NA SUCC 40 MG/1 ML VIAL IVPUSH SCH ×2 (01:07→10:33)
[2018-04-14] MEDS: HEPARIN NA (PORCINE) 5,000 UNITS/ML 1ML VIAL SQ SCH ×2 (06:05→13:20)
[2018-04-14] MEDS: LEVOTHYROXINE NA 75 MCG TABLET (FP) PO SCH (06:07)
[2018-04-14] MEDS: INSULIN SLIDING SCALE (NOVOLOG) 1 VIAL SQ SCH ×3 (06:08→16:28)
[2018-04-14] MEDS ORDERED: INSULIN (LEVEMIR) 100 UNITS/ML UNITS SQ SCH (07:00)
[2018-04-14] MEDS: ALBUTEROL SO4 2.5/IPRATROPIUM 0.5 INH SOL 3 ML VIAL.NEB. NEB SCH ×3 (07:35→16:03)
--- NOTE | 2018-04-14 10:08 | PN ---
Progress Note (short form) - Note Progress Note: Breathing feels better. Still with some dizziness when changing position. Overall less shortness of breath, chest tightness, cough and wheezing. Intake & Output 04/11/18 04/12/18 04/13/18 04/14/18 23:59 23:59 23:59 23:59 Intake Total 2522 1585 500 Balance 2522 1585 500 Last Vital Signs Temp Pulse Resp BP Pulse Ox 97.6 F 68 20 100/70 97 04/14/18 06:00 04/14/18 06:00 04/14/18 06:00 04/14/18 06:00 04/13/18 21:00 Active Medications Acetaminophen (Tylenol -) 650 mg PO Q6H PRN PRN Reason: FEVER Last Admin: 04/13/18 10:57 Dose: 650 mg Albuterol Sulfate (Ventolin 0.083% Nebulizer Soln -) 1 amp NEB Q4H PRN PRN Reason: SHORT OF BREATH/WHEEZING Last Admin: 04/10/18 00:23 Dose: 1 amp Albuterol/Ipratropium (Duoneb -) 1 amp NEB RQID [facility] Last Admin: 04/14/18 07:35 Dose: 1 amp Amlodipine Besylate (Norvasc -) 5 mg PO DAILY [facility] Last Admin: 04/13/18 13:11 Dose: 5 mg Budesonide/Formoterol Fumarate (Symbicort 160/4.5mcg -) 2 puff IH BID [facility] Last Admin: 04/13/18 22:14 Dose: 2 inh Cyclobenzaprine HCl (Cyclobenzaprine Hcl) 5 mg PO HS [facility] Last Admin: 04/13/18 22:12 Dose: 5 mg Duloxetine HCl (Cymbalta -) 120 mg PO HS [facility] Last Admin: 04/13/18 22:31 Dose: 120 mg Ezetimibe (Zetia -) 5 mg PO DAILY [facility] Last Admin: 04/13/18 10:42 Dose: 5 mg Gemfibrozil (Lopid -) 600 mg PO DAILY@1630 [facility] Last Admin: 04/13/18 17:59 Dose: 600 mg Guaifenesin (Robitussin Dm -) 10 ml PO Q4H PRN PRN Reason: COUGH Last Admin: 04/13/18 17:59 Dose: 10 ml Heparin Sodium (Porcine) (Heparin -) 5,000 unit SQ TID [facility] Last Admin: 04/14/18 06:05 Dose: 5,000 unit Azithromycin (Zithromax 500mg Ivpb (Pre-Docked)) 500 mg in 250 mls @ 250 mls/ hr IVPB DAILY [facility] Last Admin: 04/13/18 10:46 Dose: 250 mls/hr Ceftriaxone Sodium 1 gm/ (Dextrose) 50 mls @ 100 mls/hr IVPB DAILY [facility]; Protocol Last Admin: 04/13/18 10:44 Dose: 100 mls/hr Insulin Aspart (Novolog Vial Sliding Scale -) 1 vial SQ ACHS [facility]; Protocol Last Admin: 04/14/18 06:08 Dose: 12 units Insulin Detemir (Levemir Vial) 40 units SQ 0700 [facility] Last Admin: 04/14/18 06:07 Dose: 40 units Insulin Detemir (Levemir Vial) 25 units SQ HS [facility] Last Admin: 04/13/18 22:32 Dose: 25 units Levothyroxine Sodium (Synthroid -) 75 mcg PO DAILY@0700 [facility] Last Admin: 04/14/18 06:07 Dose: 75 mcg Methylprednisolone Sodium Succinate (Solu-Medrol -) 40 mg IVPUSH Q8H-IV [facility] Last Admin: 04/14/18 01:07 Dose: 40 mg Metoprolol Tartrate (Lopressor -) 12.5 mg PO BID [facility] Last Admin: 04/13/18 22:13 Dose: 12.5 mg Nicotine (Nicoderm Patch -) 7 mg TD DAILY [facility] Last Admin: 04/13/18 10:56 Dose: 7 mg Non-Formulary Medication (Pilocarpine Hcl [Pilocarpine Hcl]) 5 mg PO TID [facility] Pregabalin (Lyrica -) 50 mg PO BID [facility] Last Admin: 04/13/18 22:13 Dose: 50 mg Quetiapine Fumarate (Seroquel Xr -) 300 mg PO [facility] Last Admin: 04/13/18 22:14 Dose: 300 mg Quetiapine Fumarate (Seroquel -) 50 mg PO BID [facility] Last Admin: 04/13/18 22:13 Dose: 50 mg Timolol Maleate (Timoptic 0.5%) 1 drop OU DAILY [facility] Last Admin: 04/13/18 10:43 Dose: 1 drop Trazodone HCl (Desyrel -) 100 mg PO HS [facility] Last Admin: 04/13/18 22:13 Dose: 100 mg Gen: NAD, cough Heart: RRR Lung: bilateral rhonchi, wheezes Abd: soft, nontender Ext: no edema Laboratory Results - last 24 hr 04/12/18 04/13/18 04/13/18 12:26 06:00 06:00 WBC 6.8 RBC 4.20 Hgb 12.7 Hct 39.5 MCV 94.1 MCH 30.3 MCHC 32.2 RDW 15.2 Plt Count 364 MPV 8.6 Absolute Neuts (auto) 5.3 Neutrophils % 77.8 Neutrophils % (Manual) 65.7 Band Neutrophils % 4.0 Lymphocytes % 15.5 D Lymphocytes % (Manual) 18.2 Monocytes % 6.2 Monocytes % (Manual) 8 Eosinophils % 0.1 D Eosinophils % (Manual) 0.0 Basophils % 0.4 Basophils % (Manual) 0.0 Myelocytes % (Man) 2 Promyelocytes % (Man) 0 Blast Cells % (Manual) 0 Nucleated RBC % 2 H Metamyelocytes 0 Hypochromia 0 Platelet Estimate Normal Platelet Comment Present Polychromasia 0 Poikilocytosis 0 Anisocytosis 0 Microcytosis 0 Macrocytosis 0 Sodium 133 L Potassium 4.6 Chloride 96 L Carbon Dioxide 28 Anion Gap 8 BUN 24 H Creatinine 1.0 Creat Clearance w eGFR 56.37 POC Glucometer 430 Random Glucose 320 H* Calcium 9.0 Phosphorus 4.2 Magnesium 2.0 Total Bilirubin 0.3 AST 33 ALT 39 Alkaline Phosphatase 66 Total Protein 7.2 Albumin 3.3 L 04/13/18 04/13/18 04/13/18 12:14 16:33 21:59 WBC RBC Hgb Hct MCV MCH MCHC RDW Plt Count MPV Absolute Neuts (auto) Neutrophils % Neutrophils % (Manual) Band Neutrophils % Lymphocytes % Lymphocytes % (Manual) Monocytes % Monocytes % (Manual) Eosinophils % Eosinophils % (Manual) Basophils % Basophils % (Manual) Myelocytes % (Man) Promyelocytes % (Man) Blast Cells % (Manual) Nucleated RBC % Metamyelocytes Hypochromia Platelet Estimate Platelet Comment Polychromasia Poikilocytosis Anisocytosis Microcytosis Macrocytosis Sodium Potassium Chloride Carbon Dioxide Anion Gap BUN Creatinine Creat Clearance w eGFR POC Glucometer 431 385 406 Random Glucose Calcium Phosphorus Magnesium Total Bilirubin AST ALT Alkaline Phosphatase Total Protein Albumin 04/13/18 04/14/18 23:22 06:04 WBC RBC Hgb Hct MCV MCH MCHC RDW Plt Count MPV Absolute Neuts (auto) Neutrophils % Neutrophils % (Manual) Band Neutrophils % Lymphocytes % Lymphocytes % (Manual) Monocytes % Monocytes % (Manual) Eosinophils % Eosinophils % (Manual) Basophils % Basophils % (Manual) Myelocytes % (Man) Promyelocytes % (Man) Blast Cells % (Manual) Nucleated RBC % Metamyelocytes Hypochromia Platelet Estimate Platelet Comment Polychromasia Poikilocytosis Anisocytosis Microcytosis Macrocytosis Sodium Potassium Chloride Carbon Dioxide Anion Gap BUN Creatinine Creat Clearance w eGFR POC Glucometer 429 317 Random Glucose Calcium Phosphorus Magnesium Total Bilirubin AST ALT Alkaline Phosphatase Total Protein Albumin Problem List - Problems (1) PNA (pneumonia) Code(s): J18.9 - PNEUMONIA, UNSPECIFIED ORGANISM Qualifiers: Pneumonia type: due to unspecified organism Laterality: bilateral Lung location: unspecified part of lung Qualified Code(s): J18.9 - Pneumonia, unspecified organism (2) COPD with acute exacerbation Code(s): J44.1 - CHRONIC OBSTRUCTIVE PULMONARY DISEASE W (ACUTE) EXACERBATION (3) HTN (hypertension) Code(s): I10 - ESSENTIAL (PRIMARY) HYPERTENSION (4) Diabetes Code(s): E11.9 - TYPE 2 DIABETES MELLITUS WITHOUT COMPLICATIONS (5) Hypothyroidism Code(s): E03.9 - HYPOTHYROIDISM, UNSPECIFIED IMP: Pneumonia Acute COPD Exacerbation HTN DM Hypothyroidism KAITLIN Smoker Overlap Syndrome PLAN: - continue antibiotics - Change to Prednisone - inhaled bronchodilators standing and PRN - O2 to keep SpO2 >90% - cough suppressants - smoking cessation - Outpatient PFTs and follow up - Will need formal OSAS re-evaluation and CPAP titration - DVT prophylaxis - Ambulate and check post ambulation saturation Dr Marrufo
[2018-04-14] MEDS ORDERED: QUEtiapine FUMARATE 25 MG TABLET (FP) ONE (10:13)
[2018-04-14] MEDS ORDERED: cefTRIAXone SODIUM 1 GM VIAL ONE (10:14)
[2018-04-14] MEDS ORDERED: DEXTROSE 5%-WATER - 50 ML IVPB ONE (10:14)
[2018-04-14] MEDS ORDERED: PT OWN MED DRAWER 7, Y5N ONE (10:14)
[2018-04-14] MEDS ORDERED: predniSONE 20 MG TABLET (UD) PO SCH (10:15)
[2018-04-14] MEDS: PREGABALIN 50 MG CAPSULE PO SCH (10:16)
[2018-04-14] MEDS: EZETIMIBE 10 MG TABLET (FP) PO SCH (10:16)
[2018-04-14] MEDS: METOPROLOL TARTRATE 25 MG TABLET (FP) PO SCH (10:16)
[2018-04-14] MEDS: amLODIPine BESYLATE 5 MG TABLET (FP) PO SCH (10:16)
[2018-04-14] MEDS: QUEtiapine FUMARATE 50 MG TABLET PO SCH (10:17)
[2018-04-14] MEDS: CEFTRIAXONE 1 GM in DEXTROSE 5%-WATER - 50 ML IVPB SCH (10:17)
[2018-04-14] MEDS: NICOTINE 7 MG/24 HOURS TOPICAL PATCH TD SCH (10:21)
[2018-04-14] MEDS: TIMOLOL 0.5% OPHTHALMIC SOL 5 ML BOTTLE OU SCH (10:22)
[2018-04-14] MEDS: BUDESONIDE/FORMETEROL FUMARATE 160/4.5 mcg INHALER IH SCH (10:22)
[2018-04-14] MEDS: AZITHROMYCIN IVPB 500 MG/250 ML BAG IVPB SCH (11:28)
--- NOTE | 2018-04-14 14:37 | PN ---
Teaching Attending Note Name of Resident: Clive Jameson ATTENDING PHYSICIAN STATEMENT I saw and evaluated the patient. I reviewed the resident's note and discussed the case with the resident. I agree with the resident's findings and plan as documented. SUBJECTIVE: Feeling better. SOB/Cough/wheeze improving. No fever/chills OBJECTIVE: Afebrile, hemodynamically Stable. SpO2 97% RA Last Vital Signs Temp Pulse Resp BP Pulse Ox 97.6 F 68 20 100/70 97 04/14/18 06:00 04/14/18 06:00 04/14/18 06:00 04/14/18 06:00 04/13/18 21:00 HEENT - Atraumatic, Normocephalic Heart - S1, S2, RRR Lungs - occassional wheeze. Good air entry bilaterally. Abdomen - soft, non-tender. Bowel Sounds normal. Extremities - No calf swelling. No edema. Laboratory Results - last 24 hr 04/12/18 04/13/18 04/13/18 12:26 06:00 16:33 Neutrophils % (Manual) 65.7 Band Neutrophils % 4.0 Lymphocytes % (Manual) 18.2 Monocytes % (Manual) 8 Eosinophils % (Manual) 0.0 Basophils % (Manual) 0.0 Myelocytes % (Man) 2 Promyelocytes % (Man) 0 Blast Cells % (Manual) 0 Nucleated RBC % 2 H Metamyelocytes 0 Hypochromia 0 Platelet Estimate Normal Platelet Comment Present Polychromasia 0 Poikilocytosis 0 Anisocytosis 0 Microcytosis 0 Macrocytosis 0 POC Glucometer 430 385 Random Glucose 04/13/18 04/13/18 04/14/18 21:59 23:22 06:04 Neutrophils % (Manual) Band Neutrophils % Lymphocytes % (Manual) Monocytes % (Manual) Eosinophils % (Manual) Basophils % (Manual) Myelocytes % (Man) Promyelocytes % (Man) Blast Cells % (Manual) Nucleated RBC % Metamyelocytes Hypochromia Platelet Estimate Platelet Comment Polychromasia Poikilocytosis Anisocytosis Microcytosis Macrocytosis POC Glucometer 406 429 317 Random Glucose 04/14/18 04/14/18 11:47 12:30 Neutrophils % (Manual) Band Neutrophils % Lymphocytes % (Manual) Monocytes % (Manual) Eosinophils % (Manual) Basophils % (Manual) Myelocytes % (Man) Promyelocytes % (Man) Blast Cells % (Manual) Nucleated RBC % Metamyelocytes Hypochromia Platelet Estimate Platelet Comment Polychromasia Poikilocytosis Anisocytosis Microcytosis Macrocytosis POC Glucometer 464 Random Glucose 424 H* Current Medications Generic Name Dose Route Start Last Admin Trade Name Freq PRN Reason Stop Dose Admin Acetaminophen 650 mg 04/08/18 15:48 04/13/18 10:57 Tylenol - PO 650 mg Q6H PRN Administration FEVER Albuterol Sulfate 1 amp 04/09/18 10:46 04/10/18 00:23 Ventolin 0.083% Nebulizer Soln - NEB 1 amp Q4H PRN Administration SHORT OF BREATH/WHEEZING Albuterol/Ipratropium 1 amp 04/09/18 12:00 04/14/18 11:53 Duoneb - NEB Not Given RQID CATHLEEN Amlodipine Besylate 5 mg 04/12/18 10:00 04/14/18 10:16 Norvasc - PO 5 mg DAILY CATHLEEN Administration Budesonide/Formoterol Fumarate 2 puff 04/10/18 10:15 04/14/18 10:22 Symbicort 160/4.5mcg - IH 2 inh BID CATHLEEN Administration Cyclobenzaprine HCl 5 mg 04/09/18 22:00 04/13/18 22:12 Cyclobenzaprine Hcl PO 5 mg HS CATHLEEN Administration Duloxetine HCl 120 mg 04/09/18 22:00 04/13/18 22:31 Cymbalta - PO 120 mg HS CATHLEEN Administration Ezetimibe 5 mg 04/09/18 16:30 04/14/18 10:16 Zetia - PO 5 mg DAILY CATHLEEN Administration Gemfibrozil 600 mg 04/09/18 16:30 04/13/18 17:59 Lopid - PO 600 mg DAILY@1630 CATHLEEN Administration Guaifenesin 10 ml 04/09/18 16:21 04/13/18 17:59 Robitussin Dm - PO 10 ml Q4H PRN Administration COUGH Heparin Sodium (Porcine) 5,000 unit 04/08/18 14:00 04/14/18 13:20 Heparin - SQ 5,000 unit TID CATHLEEN Administration Azithromycin 500 mg in 250 mls @ 250 mls/hr 04/09/18 10:00 04/14/18 11:28 Zithromax 500mg Ivpb (Pre-Docked) IVPB 250 mls/hr DAILY CATHLEEN Administration Ceftriaxone Sodium 1 gm/ 50 mls @ 100 mls/hr 04/10/18 10:00 04/14/18 10:17 Dextrose IVPB 100 mls/hr DAILY CATHLEEN Administration Protocol Insulin Aspart 1 vial 04/12/18 22:00 04/14/18 11:48 Novolog Vial Sliding Scale - SQ 18 units ACHS CATHLEEN Administration Protocol Insulin Detemir 40 units 04/14/18 07:00 04/14/18 06:07 Levemir Vial SQ 40 units 0700 CATHLEEN Administration Insulin Detemir 25 units 04/13/18 22:00 04/13/18 22:32 Levemir Vial SQ 25 units HS CATHLEEN Administration Levothyroxine Sodium 75 mcg 04/10/18 07:00 04/14/18 06:07 Synthroid - PO 75 mcg DAILY@0700 CATHLEEN Administration Metoprolol Tartrate 12.5 mg 04/09/18 22:00 04/14/18 10:16 Lopressor - PO 12.5 mg BID CATHLEEN Administration Nicotine 7 mg 04/08/18 12:30 04/14/18 10:21 Nicoderm Patch - TD 7 mg DAILY CATHLEEN Administration Non-Formulary Medication 5 mg 04/09/18 22:00 Pilocarpine Hcl [Pilocarpine Hcl] PO TID CATHLEEN Prednisone 40 mg 04/14/18 10:15 04/14/18 10:35 Deltasone - PO 40 mg DAILY CATHLEEN Administration Pregabalin 50 mg 04/09/18 22:00 04/14/18 10:16 Lyrica - PO 50 mg BID CATHLEEN Administration Quetiapine Fumarate 300 mg 04/09/18 22:00 04/13/18 22:14 Seroquel Xr - PO 300 mg HS CATHLEEN Administration Quetiapine Fumarate 50 mg 04/10/18 22:00 04/14/18 10:17 Seroquel - PO 50 mg BID CATHLEEN Administration Timolol Maleate 1 drop 04/09/18 16:30 04/14/18 10:22 Timoptic 0.5% OU 1 drop DAILY CATHLEEN Administration Trazodone HCl 100 mg 04/09/18 22:00 04/13/18 22:13 Desyrel - PO 100 mg HS CATHLEEN Administration ASSESSMENT AND PLAN: 62 year old female smoker with HTN, DM 2, KAITLIN (not on CPAP), Hx of Diverticulitis, Hypothyroidism, Autoimmune Hepatitis, Depression, presented with 3 day history of cough and fever, admitted 04/08 with Sepsis secondary to bilateral pneumonia with possible new COPD diagnosis. 1. Sepsis secondary to bilateral Pneumonia. Urine legionella/Strep Ag neg Blood cx neg Continue Ceftin on discharge for 2 days to complete a 7 day course. Completed a 5 day course of Azithromycin. Afebrile, Hemodynamically stable. 2. Possible new diagnosis COPD with exacerbation given smoking history and bilateral wheeze - no prior hx of diagnosed COPD. Continue DuoNebs on discharge. Solumedrol changed to Prednisone for 5 day course total. Started on Symbicort. For PFTs as outpatient. Smoker - cessation counselled and prescribed nicotine patches. 3. Acute Hypoxic Resp Failure secondary to 1 and 2 - resolved Weaned off Supplemental O2. SpO2 97% on RA. Continue DuoNebs, Abx and Prednisone on discharge with Pulm out-patient follow up. 4. Acute Otitis Externa - Received course of Neomycin/Polymyxin/Hydrocortisone drops - declines further ear drops. 5. DM 2 - uncontrolled especially due to steroid. A1C 8.1. Fingersticks still > 400. Levemir dose increased to 40 units in AM and 25 units in PM with sliding scale coverage. Patient advised to take extra 10 units of Levemir in AM on discharge while on Prednisone. 6. HTN - Continue Lopressor daily. 7. KAITLIN (not currently on CPAP) - Out-patient Pulm referral for sleep study and CPAP. 8. Hypothyroidism - Continue Synthroid. 9. Depression - Continue Cymbalta, Seroquel, Trazodone. 10. HLD - Continue Zetia, Lopid. 11. Hypophosphatemia - resolved s/p repletion. Medically stable for discharge with Pulm and PCP follow up. Advised to monitor sugars and increase insulin accordingly.
[2018-04-14] MEDS ORDERED: INSULIN (NOVOLOG) ASPART 100 UNITS/ML 10ML VIAL SQ ONE (14:38)
--- NOTE | 2018-04-14 14:44 | DS ---
Physical Exam: SUBJECTIVE: Patient seen and examined this AM. She states she is feeling much better and agrees with going home today. OBJECTIVE: Vital Signs Period Temp Pulse Resp BP Sys/De [place] Pulse Ox Last 24 Hr 96.7 F-98.8 F 62-74 20-20 100-144/70-77 97 PHYSICAL EXAM GENERAL: A&O, no acute distress HEAD: Normocephalic, atraumatic. EYES: PERRL, no scleral icterus EARS, NOSE, THROAT: oropharynx clear without exudates. Moist mucous membranes. NECK: supple without lymphadenopathy LUNGS: Clear to auscultation with great improvement of diffuse wheezes. HEART: Regular rate and rhythm, normal S1 and S2 without murmur ABDOMEN: Soft, nontender to palpation, normoactive bowel sounds MUSCULOSKELETAL: No bony deformities or tenderness. EXTREMITIES: 2+ pulses, warm, well-perfused. No peripheral edema. NEUROLOGICAL: Cranial nerves II-XII grossly intact. Normal speech. PSYCHIATRIC: Cooperative. Good eye contact. Appropriate mood and affect. SKIN: Warm, dry, no rashes or lesions noted LABS Laboratory Results - last 24 hr 04/12/18 04/13/18 04/13/18 12:26 06:00 16:33 Neutrophils % (Manual) 65.7 Band Neutrophils % 4.0 Lymphocytes % (Manual) 18.2 Monocytes % (Manual) 8 Eosinophils % (Manual) 0.0 Basophils % (Manual) 0.0 Myelocytes % (Man) 2 Promyelocytes % (Man) 0 Blast Cells % (Manual) 0 Nucleated RBC % 2 H Metamyelocytes 0 Hypochromia 0 Platelet Estimate Normal Platelet Comment Present Polychromasia 0 Poikilocytosis 0 Anisocytosis 0 Microcytosis 0 Macrocytosis 0 POC Glucometer 430 385 Random Glucose 04/13/18 04/13/18 04/14/18 21:59 23:22 06:04 Neutrophils % (Manual) Band Neutrophils % Lymphocytes % (Manual) Monocytes % (Manual) Eosinophils % (Manual) Basophils % (Manual) Myelocytes % (Man) Promyelocytes % (Man) Blast Cells % (Manual) Nucleated RBC % Metamyelocytes Hypochromia Platelet Estimate Platelet Comment Polychromasia Poikilocytosis Anisocytosis Microcytosis Macrocytosis POC Glucometer 406 429 317 Random Glucose 04/14/18 04/14/18 11:47 12:30 Neutrophils % (Manual) Band Neutrophils % Lymphocytes % (Manual) Monocytes % (Manual) Eosinophils % (Manual) Basophils % (Manual) Myelocytes % (Man) Promyelocytes % (Man) Blast Cells % (Manual) Nucleated RBC % Metamyelocytes Hypochromia Platelet Estimate Platelet Comment Polychromasia Poikilocytosis Anisocytosis Microcytosis Macrocytosis POC Glucometer 464 Random Glucose 424 H* HOSPITAL COURSE: Date of Admission:04/08/18 Date of Discharge: 04/14/18 HPI from admission: Pt is a 62 yo F with PMHx of DM, HTN, KAITLIN (not currently on CPAP), thyroid disease, diverticulitis, disc prolapse, immune hepatitis, current smoker, presenting with worsening non productive cough and fever x3 days. Pt has chronic cough that worsened over the past 3 days with associated fevers. There is associated nasal congestion, L ear pain and sore throat. Pt uses hearing aids bilaterally, no ear discharge. No nausea/vomiting. Has been in contact with daughter and granddaughter with similar symptoms. Pt received flu vaccine about 4 months ago, does not know about pneumococal vaccine. Reports negative TB test about 4 years ago. Pt always uses 3 pillows. Was diagnosed with sleep apnea in past and had used CPAP for a while until it was "taken back" about 2 years ago. No pedal edema, no early satiety. Pt is a current smoker attempted quitting in past. Used nicotine gum and bupropion in past. Is open to using nicotine patch. Pt is visiting from [place] where she lives with a daughter and follows for health care. Has been shuttling between [facility] and [place] for the past one year between 2 daughters. Colonoscopy - reports nl 5years ago. Hospital Course: Pt was diagnosed with a community acquired pneumonia and new diagnosis COPD. She was treated with Rocephin/Azithromycin, SoluMedrol, DuoNebs and Albuterol NEBs. Throughout her hospital course, she continually improved. She was switched to PO prednisone with instructions to complete total of 7 days antibiotics and 4 days of Prednisone following discharge from the hospital. She was deemed medically safe for discharge and instructed to follow up with pulmonology within 2 weeks of discharge for further workup and management of her COPD. Of note her blood sugars were difficult to control during her hospital course, likely secondary to her increased steroid use. She was instructed to take an extra 10 units of her home insulin while she was on the prednisone and to follow up with her primary care provider for further management of her blood sugars. Minutes to complete discharge: 40 Discharge Summary Reason For Visit: SEPSIS,CHRONIC OBSTRUCTIVE PULMONARY DISEASE Current Active Problems COPD (chronic obstructive pulmonary disease) (Acute) COPD with acute exacerbation (Acute) Diabetes (Acute) HTN (hypertension) (Acute) Hypothyroidism (Acute) PNA (pneumonia) (Acute) Condition: Stable - Instructions Diet, Activity, Other Instructions: You were admitted with a likely pneumonia and also diagnosed with likely Chronic Obstructive Pulmonary Disease (COPD) which was likely acutely worse than normal secondary to the pneumonia. You were treated with antibiotics, steroids, and breathing treatments. You should take 2 more days of the antibiotics azythromycin and ceftin starting tomorrow, which has been sent to your pharmacy. The azithromycin is once daily and the ceftin is twice daily. You are also being prescribed a breathing treatment machine and breathing treatments which you should continue to use as you need them, but not more often than every 4 hours. You are also being discharged on an inhaler called Symbicort. You should inhale 2 puffs in the morning and 2 puffs at night. You are being given prednisone (a steroid) by mouth 40 mg per day for 4 days starting tomorrow. You should take one tablet daily for 4 days. You were also prescribed a nicotine patch. It is recommended that you use to decrease cravings and help quit smoking. You should follow up with your primary care physician within 1 week of discharge from the hospital. Your blood sugar was very difficult to control during your hospital stay likely due to steroid use. You should increase your home insulin by 10 units per day for the next 4 days while you are on the prednisone and make sure to follow up with your doctor for better blood sugar control. You should follow up with a senior solutions architect within 2 weeks of discharge from the hospital as you will require some further outpatient testing for your COPD and sleep apnea. Please return to the emergency department with any new or worsening symptoms or concerns. Please follow up with your primary care physician within 72 hours. Referrals: Gagandeep Marrufo MD [Staff Physician] - 2 Weeks Disposition: HOME - Home Medications Comprehensive Discharge Medication List: Ambulatory Orders Cyclobenzaprine HCl 5 mg PO HS 04/08/18 Duloxetine HCl [Cymbalta] 120 mg PO HS 04/08/18 Esomeprazole Magnesium [Nexium 24Hr] 40 mg PO DAILY 04/08/18 Ezetimibe [Zetia] 5 mg PO DAILY 04/08/18 Fexofenadine HCl [Nazia Allergy] 30 mg PO DAILY 04/08/18 Gemfibrozil 600 mg PO DAILY 04/08/18 Insulin Glargine,Hum.rec.anlog [Lantus Solostar PEN -] 25 units SQ HS 04/08/18 Insulin Glargine,Hum.rec.anlog [Lantus Solostar PEN -] 40 units SQ AM 04/08/18 Levothyroxine [Synthroid -] 75 mcg PO DAILY 04/08/18 Metoprolol Tartrate 12.5 mg PO BID 04/08/18 Pilocarpine HCl 5 mg PO TID 04/08/18 Prednisone 5 mg PO DAILY 04/08/18 Pregabalin [Lyrica] 50 mg PO BID 04/08/18 Quetiapine Fumarate "Xr" [Seroquel XR] 300 mg PO HS 04/08/18 Quetiapine Fumarate [Seroquel -] 50 mg PO BID 04/08/18 Timolol 0.5% [Timoptic 0.5%] 1 drop OU DAILY 04/08/18 metFORMIN HCL [Metformin HCl] 1,000 mg PO AM 04/08/18 metFORMIN HCL [Metformin HCl] 500 mg PO HS 04/08/18 traZODone HCL [Trazodone HCl] 100 mg PO HS 04/08/18 Albuterol 0.083% Nebulizer Bronwyn [Ventolin 0.083% Nebulizer Soln -] 1 amp NEB Q4H PRN #84 amp 04/14/18 Azithromycin 500 mg PO DAILY #2 tablet 04/14/18 Cefuroxime Axetil [Ceftin -] 500 mg PO Q12H #4 tablet 04/14/18 Nebulizer [Aeroeclipse II] 1 each ONCE #1 each 04/14/18 Nicotine Patch [Nicoderm Patch -] 7 mg TD DAILY #21 patch 04/14/18 predniSONE [Deltasone -] 40 mg PO DAILY #4 tablet 04/14/18 This patient is new to me today: No Emergency Visit: Yes ED Registration Date: 04/08/18 Care time: The patient presented to the Emergency Department on the above date and was hospitalized for further evaluation of their emergent condition. Critical Care patient: No - Discharge Referral Referred to [facility] Med [facility].: No
[2018-04-14 15:37] VITALS: BP 113/63; PULSE 79; TEMP 98.2
[2018-04-14] MEDS: GEMFIBROZIL 600 MG TABLET (FP) PO SCH (16:31)
== END 2018-04-14 18:23 | disposition home or self-care (01) | DRG 871 ==
LOC: JER 04:26 → JERBED 06:32 → OBSVTOIN 08:10 → J8W 09:26
PROVIDERS: ADMIT Internal Medicine
DX: A41.89 Other specified sepsis (principal); J96.01 Acute respiratory failure with hypoxia; J16.8 Pneumonia due to other specified infectious organisms; J44.1 Chronic obstructive pulmonary disease with (acute) exacerbation; J44.0 Chronic obstructive pulmonary disease with (acute) lower respiratory infection; J44.9 Chronic obstructive pulmonary disease, unspecified; G47.33 Obstructive sleep apnea (adult) (pediatric); I10 Essential (primary) hypertension; R50.9 Fever, unspecified; R00.0 Tachycardia, unspecified; H60.8X2 Other otitis externa, left ear; R31.9 Hematuria, unspecified; E03.9 Hypothyroidism, unspecified; E83.39 Other disorders of phosphorus metabolism; E11.65 Type 2 diabetes mellitus with hyperglycemia; E78.5 Hyperlipidemia, unspecified; F17.210 Nicotine dependence, cigarettes, uncomplicated; E09.69 Drug or chemical induced diabetes mellitus with other specified complication; F32.9 Major depressive disorder, single episode, unspecified; K75.4 Autoimmune hepatitis; Z79.52 Long term (current) use of systemic steroids
CPT/HCPCS: 36415; 36600; 71045-TC-FY; 80048; 80053; 80307; 81003; 81015; 82103; 82803; 82947; 82962; 83036; 83605; 83735; 83880; 84100; 85025; 85027; 85610; 85730; 87040; 87070; 87086; 87804; 87880; 93005; 93010; 93306-TC; 94640; 99284-25; G0378; J1644; J7030

== ENCOUNTER 2018-04-23 19:58 | Emergency (ER) | payer OTHER ==
[2018-04-23 20:09] VITALS: BP 148/67; PULSE 111; TEMP 98.2; BMI 37.8
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
== END 2018-04-23 23:00 | disposition left against medical advice (07) ==
LOC: JER 19:58
DX: H57.11 Ocular pain, right eye (principal)
CPT/HCPCS: 99281-25

== ENCOUNTER 2018-05-02 23:22 | Emergency (ER) | payer OTHER ==
[2018-05-02 23:26] VITALS: BP 133/71; PULSE 104; TEMP 98.2; BMI 36.7
[2018-05-02] MEDS ORDERED: DIPHTH,PERTUSS(ACELL),TET 0.5 ML DISP.SYRIN IM ONE (23:54)
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
[2018-05-03] MEDS ORDERED: DIPHTH,PERTUSS(ACELL),TET 0.5 ML DISP.SYRIN IM ONE (02:17)
== END 2018-05-03 02:46 | disposition home or self-care (01) ==
LOC: JER 23:22
PROC: 3E0234Z Introduction of Serum, Toxoid and Vaccine into Muscle, Percutaneous Approach (ICD-10-PCS; principal; 2018-05-02)
PROC: 0HQFXZZ Repair Right Hand Skin, External Approach (ICD-10-PCS; 2018-05-02)
PROC: 2W3JX1Z Immobilization of Right Finger using Splint (ICD-10-PCS; 2018-05-02)
DX: S61.210A Laceration without foreign body of right index finger without damage to nail, initial encounter (principal); W26.0XXA Contact with knife, initial encounter; Y93.G1 Activity, food preparation and clean up; Y92.010 Kitchen of single-family (private) house as the place of occurrence of the external cause; Y99.8 Other external cause status; Y08.89XD Assault by other specified means, subsequent encounter
CPT/HCPCS: 12002; 29131; 70450-TC; 70486-TC; 90471; 90715; 99283-25

== ENCOUNTER 2018-05-13 22:22 | Emergency (ER) | payer OTHER ==
[2018-05-13 22:39] VITALS: BP 138/69; PULSE 91; TEMP 98; BMI 37.8
--- NOTE | 2018-05-14 00:54 | PDOC ---
History of Present Illness - General Chief Complaint: Redness To Affected Area Stated Complaint: STICHES REMOVE Time Seen by Provider: 05/14/18 00:46 History Source: Patient - History of Present Illness Initial Comments: 05/14/18 00:46 63 year old female with right index finger suture removal . patient applied a red ointment to the suture site. patient as swelling to the finger no erythema. patient HYpertension, fibromyalgia, diabetes. 05/14/18 01:24 Past History - Past Medical History Allergies/Adverse Reactions: Allergies Allergy/AdvReac Type Severity Reaction Status Date / Time No Known Allergies Allergy Verified 05/03/18 02:09 Home Medications: Ambulatory Orders Cyclobenzaprine HCl 5 mg PO HS 04/08/18 Duloxetine HCl [Cymbalta] 120 mg PO HS 04/08/18 Esomeprazole Magnesium [Nexium 24Hr] 40 mg PO DAILY 04/08/18 Ezetimibe [Zetia] 5 mg PO DAILY 04/08/18 Fexofenadine HCl [Nazia Allergy] 30 mg PO DAILY 04/08/18 Gemfibrozil 600 mg PO DAILY 04/08/18 Insulin Glargine,Hum.rec.anlog [Lantus Solostar PEN -] 25 units SQ HS 04/08/18 Insulin Glargine,Hum.rec.anlog [Lantus Solostar PEN -] 40 units SQ AM 04/08/18 Levothyroxine [Synthroid -] 75 mcg PO DAILY 04/08/18 Metoprolol Tartrate 12.5 mg PO BID 04/08/18 Pilocarpine HCl 5 mg PO TID 04/08/18 Prednisone 5 mg PO DAILY 04/08/18 Pregabalin [Lyrica] 50 mg PO BID 04/08/18 Quetiapine Fumarate "Xr" [Seroquel XR] 300 mg PO HS 04/08/18 Quetiapine Fumarate [Seroquel -] 50 mg PO BID 04/08/18 Timolol 0.5% [Timoptic 0.5%] 1 drop OU DAILY 04/08/18 metFORMIN HCL [Metformin HCl] 1,000 mg PO AM 04/08/18 traZODone HCL [Trazodone HCl] 100 mg PO HS 04/08/18 Albuterol 0.083% Nebulizer Bronwyn [Ventolin 0.083% Nebulizer Soln -] 1 amp NEB Q4H PRN #84 amp 04/14/18 Azithromycin [Zithromax] 500 mg PO DAILY #2 tablet 04/14/18 Budesonide/Formeterol Fumarate [SYMBICORT 160/4.5mcg -] 2 puff IH BID #1 inhaler 04/14/18 Cefuroxime Axetil [Ceftin -] 500 mg PO Q12H #4 tablet 04/14/18 Nebulizer [Aeroeclipse II] 1 each MC ONCE #1 each 04/14/18 Nicotine Patch [Nicoderm Patch -] 7 mg TD DAILY #21 patch 04/14/18 predniSONE [Deltasone -] 40 mg PO DAILY #4 tablet 04/14/18 Cephalexin Monohydrate [Keflex -] 500 mg PO BID #14 capsule 05/14/18 Sulfamethoxazole/Trimethoprim [Bactrim Ds -] 1 tab PO BID #14 tablet 05/14/18 COPD: No Diabetes: Yes HTN: Yes Hypercholesterolemia: Yes Psychiatric Problems: Yes (depression) Thyroid Disease: Yes (hypothyroid) - Suicide/Smoking/Psychosocial Hx Smoking History: Current every day smoker Number of Cigarettes Smoked Daily: 6 Information on smoking cessation initiated: Yes Hx Alcohol Use: No Drug/Substance Use Hx: No Review of Systems - Review of Systems Able to Perform ROS?: Yes Is the patient limited Lao proficient: No Integumentary: Yes: Other (laceration) *Physical Exam - Vital Signs Last Vital Signs Temp Pulse Resp BP Pulse Ox 98 F 91 H 20 138/69 97 05/13/18 22:35 05/13/18 22:35 05/13/18 22:35 05/13/18 22:35 05/13/18 22:35 - Physical Exam General Appearance: Yes: Appropriately Dressed Extremity: positive: Other (right index finger 6 suture dry and intact, slight increase in swelling at the DIP no streaking noted. ) Neurologic: positive: Fully Oriented, Alert, Normal Mood/Affect Moderate Sedation - Procedure Monitoring Vital Signs: Procedure Monitoring Vital Signs Temperature 98 F 05/13/18 22:35 Pulse Rate 91 H 05/13/18 22:35 Respiratory Rate 20 05/13/18 22:35 Blood Pressure 138/69 05/13/18 22:35 O2 Sat by Pulse Oximetry (%) 97 05/13/18 22:35 Medical Decision Making - Medical Decision Making 05/14/18 01:17 6 suture removed right index finger at DIP joint area, patient is noted to have some erythema and swelling at the site no pain on palpation. sensation intact. will treat early cellulitis? patient to follow up in 2 days for a wound check with pcp patient referred to hand surgeon. patient reports that she has a doctor that she can follow up with *DC/Admit/Observation/Transfer Diagnosis at time of Disposition: Visit for suture removal Infected finger laceration Qualifiers: Encounter type: initial encounter Qualified Code(s): S61.219A - Laceration without foreign body of unspecified finger without damage to nail, initial encounter - Discharge Dispostion Disposition: HOME - Prescriptions Prescriptions: Cephalexin Monohydrate [Keflex -] 500 mg PO BID #14 capsule Sulfamethoxazole/Trimethoprim [Bactrim Ds -] 1 tab PO BID #14 tablet - Referrals Referrals: Calos Berg MD [Staff Physician] - - Patient Instructions Printed Discharge Instructions: DI for Cellulitis -- Adult Additional Instructions: take antibiotics as prescribed follow up with a hand doctor as soon as possible. Additional Instructions: * Please call your personal physician to report your Emergency Department visit and to report your progress, if any. * If there is no improvement in symptoms in 2 days call your physician. * Return to the Emergency Department for any worsening symptoms. - Post Discharge Activity
== END 2018-05-14 01:52 | disposition home or self-care (01) ==
LOC: JER 22:22
DX: Z48.817 Encounter for surgical aftercare following surgery on the skin and subcutaneous tissue (principal); Z48.02 Encounter for removal of sutures
CPT/HCPCS: 99281-25